=== PATIENT | female | born 1965 | race African-American/Black ===

== ENCOUNTER 2018-05-24 08:34 | Day surgery (SDC) | payer OTHER, SELFPAY ==
--- NOTE | 2018-05-24 | PATH_ITS ---
[facility] Accession Number: [id number] . 01 Material submitted: . RECTAL POLYP . 02 Diagnosis: Rectum, Polyp, Biopsy: Hyperplastic polyp. MRV/05/25/2018 . 02 Electronically signed: . Ruth Catalan MD, Pathologist NPI- [id number] . 01 Gross description: . RECTAL POLYP: Received in formalin is 1 fragment(s) of edmondson, soft tissue measuring 0.4 x 0.3 x 0.2 cm submitted entirely in 1 cassette(s) /CKI /CKI . 02 Pathologist provided ICD-10: K62.1 . 02 CPT . 898090 Performed at: 01 [facility] [address] [facility], [place], [place] [id number] MD Demond Fontaine MD Phone: [phone] Performed at: 02 [facility] [address] [place], [place] [id number] MD Ruth Catalan MD Phone: [phone]
[2018-05-24 08:50] VITALS: BP 129/82; PULSE 76; RESP 16; TEMP 36.6; O2SAT 100; BMI 44.2
[2018-05-24] MEDS: SODIUM CHLORIDE 0.9% 1,000 ML 70 ML IV (08:58)
--- NOTE | 2018-05-24 09:14 | PM.HP.1 ---
History of Present Illness Date Patient Seen: 05/24/18 Chief complaint: [id number] Narrative: The patient is a 52-year-old female who comes in for colon polyp surveillance. The patient was diagnosis multiple polyps at age 47 in [place] and had a surveillance colonoscopy 2 years later which revealed another polyp. She is back here for further surveillance. Prior colonoscopy reports are not available. Patient History Family & Social History Social History: household members spouse Meds Allergies Allergy/AdvReac Type Severity Reaction Status Date / Time No Known Drug Allergies Allergy Verified 05/24/18 08:55 Review of Systems Review of Systems All systems reviewed & are unremarkable except as noted in HPI and below Exam Vital Signs (past 8 hours): - 05/24/18 08:50 Temperature 97.8 F Pulse Rate 76 Respiratory Rate 16 Blood Pressure 129/82 Pulse Oximetry 100 Oxygen Delivery Method Room Air Narrative Exam Narrative: General: Patient is obese, not in apparent distress Cardiovascular: Regular rate and rhythm, no murmurs, rubs, or gallops; no evidence of edema; no palpable abdominal aortic aneurysm Gastrointestinal: Normoactive bowel sounds, soft, nontender, nondistended, no rebound tenderness, no hepatosplenomegaly, no evidence of hernia Assessment & Plan Plan: Assessment/Plan Narrative: 52-year-old female with history of colon polyps who is here for polyp surveillance. No active GI issues at present Regarding the procedure(s), the risks and potential complications, benefits, and alternatives (including not doing the procedure) were discussed with the patient. The risks include but are not limited to bleeding, splenic injury, infection, perforation which may require surgical intervention, missed lesions, and adverse reactions to sedative medicines. After a question and answer period, the patient agreed to proceed with the procedure(s) and gives informed consent.
--- NOTE | 2018-05-24 09:56 | P.OP.ENDO_ITS ---
Operative Date/Time/Diagnoses Date of procedure: 05/24/18 Procedure Notes Procedure in detail: Surgeon: Amaury Singh MD Procedure: Colonoscopy with polypectomy x1 Preoperative diagnosis: Colon polyp surveillance, last colonoscopy 2014 in [place] Postoperative diagnosis: Rectal polyp status post polypectomy, diverticulosis, grade 1 internal hemorrhoids Medications: Conscious sedation using 4 mg IV of Midazolam and 100 mcg IV of Fentanyl Preanesthesia Assessment An H and P was performed/updated and the Px?s ASA class is 2. The procedure was discussed in detail with the patient. The potential risks and complications including infection, bleeding, missed lesions, perforation, need for surgery in case of perforation, prolonged hospital stay, and were explained. A brief question and answer period was allotted and once all questions were answered, informed consent was obtained. The patient was brought back to the procedure room and placed on standard monitoring. The patient?s vital signs were monitored continuously throughout the entire procedure. Prior to starting, a timeout was performed to confirm the patient?s identity, allergies, medications, and procedure. Procedure in detail The patient was placed in left lateral decubitus position and once adequate sedation was obtained a ELENO was performed. The digital rectal examination did not reveal any palpable lesions. The tip of the colonoscope was placed in the anal canal and advanced without difficulty all the way to the cecum which was identified by the appendiceal orifice and the ileocecal valve. Careful examination of all zhang of the colon was performed with irrigation of any residual stool. There is note of scattered medium sized diverticula in the transverse colon, descending colon, sigmoid colon. A 2 mm polyp was visualized in the rectum and was removed by means of cold Jumbo forceps. Resection and retrieval were complete Retroflexion was performed in the rectum which revealed grade 1 internal hemorrhoids The patient tolerated the procedure well and will be brought back to the recovery area to be discharged once criteria are met. The prep was judged to be good/excellent and adequate to identify polyps less than 5 mm. The withdrawal time was 9 min. The total physician intraservice time was 21 min. Complications There were no complications and estimated blood loss was minimal. Recommendations: Resume previous diet Continue outPx medications Follow up pathology results Repeat colonoscopy in 5 years An emergency contact number was given to the patient for any complications related to the procedure
[2018-05-24] MEDS: MIDAZOLAM 5 MG/5 ML VIAL IV (10:00)
[2018-05-24] MEDS: fentaNYL 250 MCG/5 ML INJ IV (10:00)
--- NOTE | 2018-05-24 10:18 | PM.DS.1 ---
History of Present Illness Chief complaint: [id number] Narrative: The patient is a 52-year-old female who comes in for colon polyp surveillance. The patient was diagnosis multiple polyps at age 47 in [place] and had a surveillance colonoscopy 2 years later which revealed another polyp. She is back here for further surveillance. Prior colonoscopy reports are not available. Discharge Providers Discharge provider: Amaury Singh MD Discharge Date: 05/24/18 Exam Vital Signs (past 8 hours): - 05/24/18 08:50 Temperature 97.8 F Pulse Rate 76 Respiratory Rate 16 Blood Pressure 129/82 Pulse Oximetry 100 Oxygen Delivery Method Room Air Narrative Exam Narrative: General: Patient is obese, not in apparent distress Cardiovascular: Regular rate and rhythm, no murmurs, rubs, or gallops; no evidence of edema; no palpable abdominal aortic aneurysm Gastrointestinal: Normoactive bowel sounds, soft, nontender, nondistended, no rebound tenderness, no hepatosplenomegaly, no evidence of hernia Discharge Plan Discharge Plan Patient Disposition: Home Discharge comment: Discharge patient with a copy of procedure report Discharge Med Rec/Prescriptions Discharge Orders: Discharge (Order); Ordered 05/24/18 Ordered By: Amaury Singh Provider Discharge Instructions Diet: Diet as Tolerated Visit Report/Discharge Packet Stand Alone Forms: Surgery Discharge Discharge Data Attending Provider: Amaury Singh
[2018-05-24 10:20] VITALS: BP 118/65; PULSE 68; RESP 11; TEMP 36.8; O2SAT 97
[2018-05-24 10:25] VITALS: BP 116/60; PULSE 69; RESP 11; O2SAT 98
[2018-05-24 10:30] VITALS: BP 100/60; PULSE 72; RESP 14; TEMP 36.6; O2SAT 99
== END 2018-05-24 11:05 | disposition home or self-care (01) ==
PROVIDERS: Visit Provider Internal Medicine Gastroenterology
PROC: 0DJD8ZZ Inspection of Lower Intestinal Tract, Via Natural or Artificial Opening Endoscopic (ICD-10-PCS; CPT 45378; principal; 2018-05-24 10:00)
DX: Z86.010 Personal history of colon polyps (principal); K57.30 Diverticulosis of large intestine without perforation or abscess without bleeding; K64.0 First degree hemorrhoids; K62.1 Rectal polyp
CPT/HCPCS: 45380; J2250; J3010

== ENCOUNTER 2018-06-10 11:19 | Emergency (ER) | payer OTHER, SELFPAY ==
[2018-06-10 11:24] VITALS: BP 141/75; PULSE 79; RESP 16; TEMP 36.5; O2SAT 97
--- NOTE | 2018-06-10 12:39 | ED.EXTPRO ---
HPI - Extremity Problem <Nadia Greer PA-C - Last Filed: 06/10/18 21:04> General Chief complaint: Extremity Problem,Nontraumatic Stated complaint: left leg pain since 06/06 Time Seen by Provider: 06/10/18 12:39 Source: patient Mode of arrival: ambulatory Limitations: physical limitation History of Present Illness HPI Narrative: This 52-year-old female comes in due to pain in her left knee and thigh area. She denies any new trauma. She states that she has chronic pain in the knee related to old meniscal tears and arthritis and has had injections for this before, however this pain is not typical. She states that she awoke with pain and swelling on , felt like she had been kicked in the knee area. She states the pain radiates up her anterior thigh. She states that the swelling laxative and wanes but pain has stayed with her. She has tried Aleve and topical medicines as she usually does at home and not helpful. She states that she can bear some weight and pain is better if she turns her foot in. She denies any new activity leading up to symptoms. She denies any pain in her ankle or hip. She denies pain in the posterior leg. 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 She has a history of breast cancer. She has not noted any dyspnea, chest pain, or other new symptoms. Pain is not acutely worse today but not getting better and not able to see her PCP for weeks Related Data Previous Rx's Medication Instructions Recorded oxycodone-acetaminophen [Percocet] 1 tab PO Q4-6H PRN #12 tab 06/10/18 Allergies Allergy/AdvReac Type Severity Reaction Status Date / Time No Known Drug Allergies Allergy Verified 05/24/18 08:55 Review of Systems <Nadia Greer PA-C - Last Filed: 06/10/18 21:04> Review of Systems All systems reviewed & are unremarkable except as noted in HPI and below Exam <Nadia Greer PA-C - Last Filed: 06/10/18 21:04> Narrative Exam Narrative: GENERAL APPEARANCE: Patient sitting comfortably, in no distress. NECK/THYROID: Neck supple, no JVD. LUNGS: Clear to auscultation bilaterally. HEART: Regular rate and rhythm without murmur, normal S1, S2, no S3 or S4. EXTREMITIES: No cyanosis or pedal edema. No calf tenderness. Pedal pulses intact NEUROLOGIC: Alert and oriented, normal speech, and coordination. MS: L. knee there is mild effusion most visible over and superior to the patella. She is tender over the infrapatellar tissues, patella itself and central distal quads. No tenderness elsewhere over the left lower extremity including the ankle or hip. She is able to flex the knee to about 45? with tenderness. No tenderness with ankle range of motion, hip ROM Initial Vital Signs Initial Vital Signs: Vital Signs Temperature 97.7 F 06/10/18 11:24 Pulse Rate 79 06/10/18 11:24 Respiratory Rate 16 06/10/18 11:24 Blood Pressure 141/75 H 06/10/18 11:24 Pulse Oximetry 97 06/10/18 11:24 <Luiz Casillas DO - Last Filed: 06/11/18 07:07> Initial Vital Signs Initial Vital Signs: Vital Signs Temperature 97.7 F 06/10/18 11:24 Pulse Rate 79 06/10/18 11:24 Respiratory Rate 16 06/10/18 11:24 Blood Pressure 141/75 H 06/10/18 11:24 Pulse Oximetry 97 06/10/18 11:24 Course <Nadia Greer PA-C - Last Filed: 06/10/18 21:04> Orders Ordered: ED Orders 06/10/18 12:52 XR knee LT 3V Stat 06/10/18 12:54 US periph venous low extrem lt Stat Vital Signs - 8 hr 06/10/18 13:15 06/10/18 14:38 Temperature 98.9 F 98.7 F Pulse Rate 76 85 Respiratory Rate 16 16 Blood Pressure [Left Wrist] 126/76 137/71 Pulse Oximetry 97 97 <DO Cristina Martinez Last Filed: 06/11/18 07:07> Orders Ordered: ED Orders 06/10/18 12:52 XR knee LT 3V Stat 06/10/18 12:54 US periph venous low extrem lt Stat Vital Signs - 8 hr 06/10/18 13:15 06/10/18 14:38 Temperature 98.9 F 98.7 F Pulse Rate 76 85 Respiratory Rate 16 16 Blood Pressure [Left Wrist] 126/76 137/71 Pulse Oximetry 97 97 MDM - Extremity (Nontraumatic) <Nadia Greer PA-C - Last Filed: 06/10/18 21:04> Imaging Data knee: Radiologist's impression: BACK Knee X-Ray (Signed) Pato Ramos - 06/10/18 Launch Image View Report History [address] [address] XRay Report Signed Patient: Julissa Zelaya MR#: [id number] : 1965 Acct:[id number] Age/Sex: 52 / F Date of Service: 06/10/18 Loc: ED Accession Number: [id number] Procedure: XR knee LT 3V Ordering Provider: Nadia Greer P.A-C PROCEDURE: XR KNEE LT 3V INDICATIONS: pain, swelling TECHNIQUE: 3 views of the knee were acquired. COMPARISON: None. FINDINGS: Bones: No fractures or dislocations. No suspicious bony lesions. There is near [id number] articulation at the lateral facet of the left patellofemoral joint and slightly less degeneration at the medial compartment of the left knee. No acute trauma. Soft tissues: No joint effusion. No suspicious soft tissue calcifications. IMPRESSION: Moderately severe to severe medial compartment and patellofemoral joint osteoarthritis at the left knee, without trauma. Dictated by: Pato Ramos M.D. on 06/10/2018 at 13:52 Approved by: Pato Ramos M.D. on 06/10/2018 at 13:53 Venous US: Radiologist's impression: View Report History [address] [address] Ultrasound Report Signed Patient: Julissa Zelaya MR#: [id number] : 1965 Acct:[id number] Age/Sex: 52 / F Date of Service: 06/10/18 Loc: ED Accession Number: [id number] Procedure: US periph venous low extrem lt Ordering Provider: Nadia Greer P.A-C PROCEDURE: US PERIPH VENOUS LOW EXTREM LT INDICATIONS: LE pain, swelling, h/o clot TECHNIQUE: Real-time imaging, as well as color and pulse Doppler interrogation, were performed of the lower extremity deep veins from the inguinal ligament to the popliteal fossa. COMPARISON: None. FINDINGS: The deep veins are normally compressible, and free of intraluminal thrombus. Color and pulse Doppler demonstrate normal phasic intraluminal flow. There is normal augmentation response to distal compression maneuver. IMPRESSION: Normal for age. No DVT found. Dictated by: Pato Ramos M.D. on 06/10/2018 at 14:57 Approved by: Pato Ramos M.D. on 06/10/2018 at 14:58 Discharge Plan Departure Patient Disposition: Home Clinical Impression: Knee osteoarthritis, Patellofemoral pain syndrome of left knee Discharge Date/Time: 06/10/18 14:44 Interventions: ED Discharge Assessment Last Done: 06/10/18 14:43 Instructions: DI for Patellofemoral Pain Syndrome-Adult Activity Restrictions/Additional Instructions: Your arthritis in her knee is severe, and some of this pain could be due to an exacerbation of that. This can lead to swelling as well. You also have localized pain over your knee cap and the tendon above and below it. This could be related to strain from your arthritis. Please continue your Aleve, 1-2 tablets twice daily (maximum), and you can add the Percocet as needed since you have done well with that in the past (do not drive). Try the knee brace or Tawanda wrap when you are walking (whatever is most helpful). You can also try heat and ice, as well as topical medicine such as lidocaine patch or Ganesh-Dobbins. Please follow-up with your PCP next week as you may need a refill on pain medication and they may want to refer you to Orthopedics. If you want to be seen locally, [facility] sees patients both in [facility] and [facility] (they can refer you there). Please return if you have new or acutely worsening symptoms. Our pharmacy technician per diem did not see any sign of blood clot in your leg today, however I will call you if the radiologist reports any different findings. Prescriptions: New oxycodone-acetaminophen [Percocet] 5-325 mg tablet 1 tab PO Q4-6H PRN (Reason: acute knee pain) Qty: 12 RF: 0 Referrals: Martha Marsh [Other] ([place]) <Luiz Casillas DO - Last Filed: 06/11/18 07:07> Cosign ED Attending Cosgarryature Attestation: I was available for consultation during this patient's emergency department encounter
--- NOTE | 2018-06-10 12:52 | DI.RAD.S_ITS ---
PROCEDURE: XR KNEE LT 3V INDICATIONS: pain, swelling TECHNIQUE: 3 views of the knee were acquired. COMPARISON: None. FINDINGS: Bones: No fractures or dislocations. No suspicious bony lesions. There is near jwlx-vp-pfzq articulation at the lateral facet of the left patellofemoral joint and slightly less degeneration at the medial compartment of the left knee. No acute trauma. Soft tissues: No joint effusion. No suspicious soft tissue calcifications. IMPRESSION: Moderately severe to severe medial compartment and patellofemoral joint osteoarthritis at the left knee, without trauma. Dictated by: Pato Ramos M.D. on 06/10/2018 at 13:52 Approved by: Pato Ramos M.D. on 06/10/2018 at 13:53
--- NOTE | 2018-06-10 12:54 | DI.US.S_ITS ---
PROCEDURE: US PERIPH VENOUS LOW EXTREM LT INDICATIONS: LE pain, swelling, h/o clot TECHNIQUE: Real-time imaging, as well as color and pulse Doppler interrogation, were performed of the lower extremity deep veins from the inguinal ligament to the popliteal fossa. COMPARISON: None. FINDINGS: The deep veins are normally compressible, and free of intraluminal thrombus. Color and pulse Doppler demonstrate normal phasic intraluminal flow. There is normal augmentation response to distal compression maneuver. IMPRESSION: Normal for age. No DVT found. Dictated by: Pato Ramos M.D. on 06/10/2018 at 14:57 Approved by: Pato Ramos M.D. on 06/10/2018 at 14:58
--- NOTE | 2018-06-10 13:05 | ED_ITS ---
HPI - Extremity Problem <Nadia Greer PA-C - Last Filed: 06/10/18 21:04> General Chief complaint: Extremity Problem,Nontraumatic Stated complaint: left leg pain since 06/06 Time Seen by Provider: 06/10/18 12:39 Source: patient Mode of arrival: ambulatory Limitations: physical limitation History of Present Illness HPI Narrative: This 52-year-old female comes in due to pain in her left knee and thigh area. She denies any new trauma. She states that she has chronic pain in the knee related to old meniscal tears and arthritis and has had injections for this before, however this pain is not typical. She states that she awoke with pain and swelling on , felt like she had been kicked in the knee area. She states the pain radiates up her anterior thigh. She states that the swelling laxative and wanes but pain has stayed with her. She has tried Aleve and topical medicines as she usually does at home and not helpful. She states that she can bear some weight and pain is better if she turns her foot in. She denies any new activity leading up to symptoms. She denies any pain in her ankle or hip. She denies pain in the posterior leg. 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 She has a history of breast cancer. She has not noted any dyspnea, chest pain, or other new symptoms. Pain is not acutely worse today but not getting better and not able to see her PCP for weeks Related Data Previous Rx's Medication Instructions Recorded oxycodone-acetaminophen [Percocet] 1 tab PO Q4-6H PRN #12 tab 06/10/18 Allergies Allergy/AdvReac Type Severity Reaction Status Date / Time No Known Drug Allergies Allergy Verified 05/24/18 08:55 Review of Systems <Nadia Greer PA-C - Last Filed: 06/10/18 21:04> Review of Systems All systems reviewed & are unremarkable except as noted in HPI and below Exam <Nadia Greer PA-C - Last Filed: 06/10/18 21:04> Narrative Exam Narrative: GENERAL APPEARANCE: Patient sitting comfortably, in no distress. NECK/THYROID: Neck supple, no JVD. LUNGS: Clear to auscultation bilaterally. HEART: Regular rate and rhythm without murmur, normal S1, S2, no S3 or S4. EXTREMITIES: No cyanosis or pedal edema. No calf tenderness. Pedal pulses intact NEUROLOGIC: Alert and oriented, normal speech, and coordination. MS: L. knee there is mild effusion most visible over and superior to the patella. She is tender over the infrapatellar tissues, patella itself and central distal quads. No tenderness elsewhere over the left lower extremity including the ankle or hip. She is able to flex the knee to about 45? with tenderness. No tenderness with ankle range of motion, hip ROM Initial Vital Signs Initial Vital Signs: Vital Signs Temperature 97.7 F 06/10/18 11:24 Pulse Rate 79 06/10/18 11:24 Respiratory Rate 16 06/10/18 11:24 Blood Pressure 141/75 H 06/10/18 11:24 Pulse Oximetry 97 06/10/18 11:24 <Luiz Casillas DO - Last Filed: 06/11/18 07:07> Initial Vital Signs Initial Vital Signs: Vital Signs Temperature 97.7 F 06/10/18 11:24 Pulse Rate 79 06/10/18 11:24 Respiratory Rate 16 06/10/18 11:24 Blood Pressure 141/75 H 06/10/18 11:24 Pulse Oximetry 97 06/10/18 11:24 Course <Nadia Greer PA-C - Last Filed: 06/10/18 21:04> Orders Ordered: ED Orders 06/10/18 12:52 XR knee LT 3V Stat 06/10/18 12:54 US periph venous low extrem lt Stat Vital Signs - 8 hr 06/10/18 13:15 06/10/18 14:38 Temperature 98.9 F 98.7 F Pulse Rate 76 85 Respiratory Rate 16 16 Blood Pressure [Left Wrist] 126/76 137/71 Pulse Oximetry 97 97 <DO Cristian Martinez Last Filed: 06/11/18 07:07> Orders Ordered: ED Orders 06/10/18 12:52 XR knee LT 3V Stat 06/10/18 12:54 US periph venous low extrem lt Stat Vital Signs - 8 hr 06/10/18 13:15 06/10/18 14:38 Temperature 98.9 F 98.7 F Pulse Rate 76 85 Respiratory Rate 16 16 Blood Pressure [Left Wrist] 126/76 137/71 Pulse Oximetry 97 97 MDM - Extremity (Nontraumatic) <Nadia Greer PA-C - Last Filed: 06/10/18 21:04> Imaging Data knee: Radiologist's impression: BACK Knee X-Ray (Signed) Pato Ramos - 06/10/18 Launch Image View Report History [address] [address] XRay Report Signed Patient: Julissa Zelaya MR#: [id number] : 1965 Acct:[id number] Age/Sex: 52 / F Date of Service: 06/10/18 Loc: ED Accession Number: [id number] Procedure: XR knee LT 3V Ordering Provider: Nadia Greer P.A-C PROCEDURE: XR KNEE LT 3V INDICATIONS: pain, swelling TECHNIQUE: 3 views of the knee were acquired. COMPARISON: None. FINDINGS: Bones: No fractures or dislocations. No suspicious bony lesions. There is near [id number] articulation at the lateral facet of the left patellofemoral joint and slightly less degeneration at the medial compartment of the left knee. No acute trauma. Soft tissues: No joint effusion. No suspicious soft tissue calcifications. IMPRESSION: Moderately severe to severe medial compartment and patellofemoral joint osteoarthritis at the left knee, without trauma. Dictated by: Pato Ramos M.D. on 06/10/2018 at 13:52 Approved by: Pato Ramos M.D. on 06/10/2018 at 13:53 Venous US: Radiologist's impression: View Report History [address] [address] Ultrasound Report Signed Patient: Julissa Zelaya MR#: [id number] : 1965 Acct:[id number] Age/Sex: 52 / F Date of Service: 06/10/18 Loc: ED Accession Number: [id number] Procedure: US periph venous low extrem lt Ordering Provider: Nadia Greer P.A-C PROCEDURE: US PERIPH VENOUS LOW EXTREM LT INDICATIONS: LE pain, swelling, h/o clot TECHNIQUE: Real-time imaging, as well as color and pulse Doppler interrogation, were performed of the lower extremity deep veins from the inguinal ligament to the popliteal fossa. COMPARISON: None. FINDINGS: The deep veins are normally compressible, and free of intraluminal thrombus. Color and pulse Doppler demonstrate normal phasic intraluminal flow. There is normal augmentation response to distal compression maneuver. IMPRESSION: Normal for age. No DVT found. Dictated by: Pato Ramos M.D. on 06/10/2018 at 14:57 Approved by: Pato Ramos M.D. on 06/10/2018 at 14:58 Discharge Plan Departure Patient Disposition: Home Clinical Impression: Knee osteoarthritis, Patellofemoral pain syndrome of left knee Discharge Date/Time: 06/10/18 14:44 Interventions: ED Discharge Assessment Last Done: 06/10/18 14:43 Instructions: DI for Patellofemoral Pain Syndrome-Adult Activity Restrictions/Additional Instructions: Your arthritis in her knee is severe, and some of this pain could be due to an exacerbation of that. This can lead to swelling as well. You also have localized pain over your knee cap and the tendon above and below it. This could be related to strain from your arthritis. Please continue your Aleve, 1- 2 tablets twice daily (maximum), and you can add the Percocet as needed since you have done well with that in the past (do not drive). Try the knee brace or Tawanda wrap when you are walking (whatever is most helpful). You can also try heat and ice, as well as topical medicine such as lidocaine patch or Ganesh-Dobbins. Please follow-up with your PCP next week as you may need a refill on pain medication and they may want to refer you to Orthopedics. If you want to be seen locally, [facility] sees patients both in [facility] and [facility] (they can refer you there). Please return if you have new or acutely worsening symptoms. Our help desk technician did not see any sign of blood clot in your leg today, however I will call you if the radiologist reports any different findings. Prescriptions: New oxycodone-acetaminophen [Percocet] 5-325 mg tablet 1 tab PO Q4-6H PRN (Reason: acute knee pain) Qty: 12 RF: 0 Referrals: Martha Marsh [Other] ([place]) <Luiz Casillas DO - Last Filed: 06/11/18 07:07> Cosign ED Attending Cosgarryature Attestation: I was available for consultation during this patient's emergency department encounter
[2018-06-10 13:15] VITALS: BP 126/76; PULSE 76; RESP 16; TEMP 37.2; O2SAT 97
[2018-06-10 14:38] VITALS: BP 137/71; PULSE 85; RESP 16; TEMP 37.1; O2SAT 97
== END 2018-06-10 14:44 | disposition home or self-care (01) ==
PROVIDERS: Emergency Provider Internal Medicine
DX: M17.10 Unilateral primary osteoarthritis, unspecified knee (principal); M22.2X2 Patellofemoral disorders, left knee
CPT/HCPCS: 73562; 93971; 99283; 99284

== ENCOUNTER 2019-10-22 07:47 | Emergency (ER) | payer OTHER, SELFPAY ==
[2019-10-22 07:56] VITALS: BP 131/61; PULSE 61; RESP 16; TEMP 36.4; O2SAT 100; BMI 26.5
--- NOTE | 2019-10-22 08:27 | ED.BACK ---
HPI - Back Pain/Injury General Chief Complaint: Back Pain/Injury Stated Complaint: Lower left back pain Time Seen by Provider: 10/22/19 08:12 Source: patient Limitations: no limitations History of Present Illness HPI Narrative: CC: Left Flank Pain HPI: The patient is a 54-year-old female who presents to the emergency department with left lower back pain. The patient states that she retired went to bed without any problems. She developed the pain at approximately 5:30 a.m. this morning. She stated that she has nocturia usually x2 woke up in the middle of the night to go to the bathroom in as she did she developed some pain and discomfort that she thought was a gas cramp in her left lower back. The discomfort seemed to get worse and radiate and wrap down around her flank towards her pelvis. As the morning progressed the discomfort became more and more intense. At 1 point the pain was 10/10 in intensity at which time she developed nausea vomiting and retching. That is when she decided to come into the emergency department. In the emergency department her pain was described to be approximately 7/10 intensity. She describes the pain is a dull achy discomfort that is not sharp. She has had some minimal burning dysuria and urgency without increased frequency. She states that she has not had a recent urinary tract infection has never had kidney stones or kidney failure. The patient states that in 2006 she broke her right leg and had a blood clot with pulmonary embolism. At that point she was placed on an anticoagulant which she no longer is on. She also states that she has had gastric bypass surgery. She states that her pain is tolerable but not tolerable. It is very uncomfortable. Related Data Previous Rx's Medication Instructions Recorded oxycodone-acetaminophen [Percocet] 1 tab PO Q4-6H PRN #12 tab 06/10/18 ciprofloxacin HCl [Cipro] 500 mg PO BID #14 tab 10/22/19 metronidazole [Flagyl] 500 mg PO BID #14 tab 10/22/19 ondansetron HCl [Zofran] 4 mg PO Q6H PRN #15 tab 10/22/19 oxycodone-acetaminophen [Percocet] 1 tab PO Q6H PRN #12 tab 10/22/19 tamsulosin [Flomax] 0.4 mg PO DAILY #5 cap 10/22/19 Allergies Allergy/AdvReac Type Severity Reaction Status Date / Time No Known Drug Allergies Allergy Verified 05/24/18 08:55 Review of Systems Review of Systems Narrative: REVIEW OF SYSTEMS: CONSTITUTIONAL: No fever chills or sweats NEUROLOGICAL: No headache numbness tingling paresthesias anesthesia is or paresis EENT: No sore throat nasal congestion change in vision CARDIO-PULMONARY: No chest pain cough shortness of breath GASTROINTESTINAL: Left flank pain with nausea and vomiting no diarrhea GENITAL URINARY: Left flank pain with mild burning dysuria increased urgency but no frequency MUSCULOSKELETAL/ RHEUMATOLOGICAL: Left lower back and flank pain Patient History Medical History Chronic pain of both knees (Chronic) History of breast cancer (Resolved) Surgical History History of mastectomy (Chronic) Social History household members: spouse Smoking Status: Never smoker Smoking Status: Never smoker alcohol intake frequency: a few times a week Substance Use Type: does not use Exam Narrative Exam Narrative: PHYSICAL EXAM: CONSTITUTIONAL: Awake, Alert, Oriented, Coherent, Cooperative in NAD. Appears very stoic HEAD: AT/NC EENT: PERRL, FROM of eyes, no discharge, no nystagmus MOUTH: Wearing a mask NECK: Supple, no obvious JVD, Trachea is midline without stridor, . SPINE: Palpationof the cervical, Thoracic, Lumbar or Sacral spine reveals no gross deformity or tenderness. No CVA tenderness. THORAX: No deformity, retractions, chest wall tenderness. LUNGS: Clear, symmetrical breath sounds without respiratory distress. HEART: Normal heart tones, regular rhythm and rate without murmur. ABDOMEN: Soft, non-tender, normal bowel sounds without guarding, rebound, rigidity or palpable mass. EXTREMITIES: No edema, deformity, tenderness or cyanosis. NEURO: Awake, alert, oriented, conversive, cranial nerves II-XII are symmetrical , moves all 4 extremities and is ambulatory. Initial Vital Signs Initial Vital Signs: Vital Signs Temperature 97.6 F 10/22/19 07:56 Pulse Rate 61 10/22/19 07:56 Respiratory Rate 16 10/22/19 07:56 Blood Pressure 131/61 10/22/19 07:56 Pulse Oximetry 100 10/22/19 07:56 Course Course Course Narrative: 0827: per nursing urine dipstick positive hematuria 0923: The patient's CT scan has been completed. The patient's urinalysis reveals that she has a few bacteria and is positive for red blood cells. Her urine is being cultured. 0947: The patient's CT scan of her abdomen reveals 1. Distal left ureter obstructing calculus measuring 8 x 5 mm with associated moderate hydroureteronephrosis. 2. Additional nonobstructing punctate kidney stones 3. Minimal stranding around the sigmoid colon and in the right adnexa there is mild sigmoid colon diverticulosis. Findings are suspicious for mild diverticulitis follow-up colonoscopy should be considered if not recently performed. 4. Gallbladder sludge Bulbous appearing uterus suggesting uterine fibroids. 1007: The patient feels much better and able to go home on her own. She was informed of the CT findings. Orders Ordered: Discontinued Medications Ciprofloxacin (Cipro) 500 mg PO NOW ONE Stop: 10/22/19 10:09 Last Admin: 10/22/19 11:51 Dose: 500 mg Documented by: ROSALIO Metronidazole (Metronidazole) 500 mg PO NOW ONE Stop: 10/22/19 10:09 Last Admin: 10/22/19 11:51 Dose: 500 mg Documented by: ROSALIO Morphine Sulfate (Morphine) 4 mg IV NOW ONE Stop: 10/22/19 08:27 Last Admin: 10/22/19 08:43 Dose: 4 mg Documented by: ROSALIO Ondansetron HCl (Zofran) 4 mg IV NOW ONE Stop: 10/22/19 08:27 Last Admin: 10/22/19 08:44 Dose: 4 mg Documented by: ROSALIO Tamsulosin HCl (Flomax) 0.4 mg PO NOW ONE Stop: 10/22/19 10:20 Last Admin: 10/22/19 11:51 Dose: 0.4 mg Documented by: ROSALIO Vital Signs Vital signs: Vital Signs - 8 hr 10/22/19 12:01 Pulse Rate 58 L Respiratory Rate 19 Blood Pressure [Left Arm] 131/68 Pulse Oximetry 98 MDM - Back Pain/Injury Medical Records Attestation: I reviewed the patient's medical records. Lab Data Attestation: I reviewed the patient's lab results. Result diagrams: 10/22/19 08:41 10/22/19 08:41 Labs: Lab Results 10/22/19 10/22/19 10/22/19 Range/Units 08:00 08:41 08:41 WBC 4.2 L (4.5-11.0) X10^3/uL RBC 3.83 L (4.0-5.2) X10^6/uL Hgb 12.0 (12.0-16.0) g/dL Hct 36.0 (36-46) % MCV 94.1 (80-100) fL MCH 31.3 (26-34) PG MCHC 33.3 (30-36) % RDW 14.7 (11.6-14.8) % Plt Count 208 (150-400) X10^3/uL Neut % (Auto) 66.2 (50-75) % Lymph % (Auto) 22.5 L (25-40) % [place] % (Auto) 8.3 (3-14) % Eos % (Auto) 1.6 L (2-4) % Baso % (Auto) 1.4 (0-2) % Neut # (Auto) 2800 (0472-9183) /uL Lymph # (Auto) 900 L (7399-1586) /uL [place] # (Auto) 400 (0-900) /uL Eos # (Auto) 100 (0-450) /uL Baso # (Auto) 100 (0-100) /uL Sodium 139 (137-145) mmol/L Potassium 3.7 (3.4-5.1) mmol/L Chloride 108 H (98-107) mmol/L Carbon Dioxide 28 (22-32) mmol/L BUN 13 (7-17) mg/dL Creatinine 0.79 (0.52-1.04) mg/dL Estimated GFR > 60.0 (>60) mL/min BUN/Creatinine Ratio 16.5 (6-22) Glucose 93 (70-100) mg/dL Calcium 9.8 (8.4-10.2) mg/dL Total Bilirubin 1.0 (0.2-1.3) mg/dL AST 31 (14-36) IU/L ALT 21 (<35) IU/L Alkaline Phosphatase 85 (38-126) U/L Total Protein 6.5 (6.3-8.2) g/dL Albumin 3.3 L (3.5-5.0) g/dL Globulin 3.2 (1.7-4.1) g/dL Albumin/Globulin Ratio 1.0 (1.0-2.8) Urine RBC 1-5/hpf (0-5/HPF) Urine WBC 1-5/hpf (0-5/HPF) Ur Squamous Epith Cells 1-5 /hpf (0-5/HPF) Amorphous Sediment 3+ Urine Bacteria Few (2-10) H (None) Hyaline Casts 0-1/lpf (None) Urine Mucus 1+ H (Negative) Ur Culture Indicated? Specimen cultured Point of Care Testing Test Results Negative Urine Dip Bedside Urine Glucose Negative Bedside Urine Bilirubin - Negative Bedside Urine Ketone - Negative Urine Specific Ch[place] 1.025 Bedside Urine Occult Blood + Bedside Urine pH 6.0 Bedside Urine Protein - Negative Bedside Urine Urobilinogen +/- 1mg Bedside Urine Nitrite - Negative Bedside Urine Leukocytes +/- 15 Esterase Discharge Plan Departure Patient Disposition: Home Clinical Impression: Acute left flank pain, Retching, Calculus of left ureter, Hydroureteronephrosis, Sigmoid diverticulitis Hematuria Qualifiers: Hematuria type: unspecified type Qualified Code(s): R31.9 - Hematuria, unspecified Fibroid, uterine Qualifiers: Uterine leiomyoma location: unspecified location Qualified Code(s): D25.9 - Leiomyoma of uterus, unspecified Diarrhea Qualifiers: Diarrhea type: unspecified type Qualified Code(s): R19.7 - Diarrhea, unspecified Discharge Date/Time: 10/22/19 12:02 Instructions: DI for Kidney Stones, DI for Diverticulitis, DI for Gallstones, DI for Vomiting -- Adult Activity Restrictions/Additional Instructions: 1. Follow-up with your primary care physician and Dr. Summers the urologist on-call for your kidney stone. 2. Take the Zofran for your nausea and vomiting. Take the Percocet for your pain and discomfort. Take the Cipro and Flagyl for your diverticulitis and diarrhea. 3. Drink 2-3 L of fluid per day. Advance her diet as tolerated 4. If you developed severe pain on relieved by the pain medications provided you need to return to the emergency department . 5. Return to the emergency department if you develop fever uncontrolled nausea and vomiting, fainting or passing out. Prescriptions: New oxycodone-acetaminophen [Percocet] 7.5-325 mg tablet 1 tab PO Q6H PRN (Reason: pain) Qty: 12 RF: 0 ondansetron HCl [Zofran] 4 mg tablet 4 mg PO Q6H PRN (Reason: nausea and vomiting) Qty: 15 RF: 0 metronidazole [Flagyl] 500 mg tablet 500 mg PO BID Qty: 14 RF: 0 ciprofloxacin HCl [Cipro] 500 mg tablet 500 mg PO BID Qty: 14 RF: 0 tamsulosin [Flomax] 0.4 mg capsule 0.4 mg PO DAILY Qty: 5 RF: 0 No Action oxycodone-acetaminophen [Percocet] 5-325 mg tablet 1 tab PO Q4-6H PRN (Reason: acute knee pain) Qty: 12 RF: 0 Referrals: Kristine Summers MD [Physician] -
[2019-10-22] MEDS: MORPHINE 4 MG/ML INJ IV (08:43)
[2019-10-22] MEDS: ONDANSETRON 4 MG/2 ML INJ IV (08:44)
[2019-10-22 08:46] VITALS: BP 130/62; PULSE 60; RESP 17; O2SAT 100
[2019-10-22 08:54] LABS: Add Manual Diff / Slide Review NO; Basophils Absolute Auto 100 /uL (0-100); Basophils Percent Auto 1.4 % (0-2); Eosinophils Absolute Auto 100 /uL (0-450); Eosinophils Percent Auto 1.6 % (2-4); Lymphocytes Absolute Auto 900 /uL (1100-4500); Lymphocytes Percent Auto 22.5 % (25-40); Mean Corpuscular HGB Conc 33.3 % (30-36); Mean Corpuscular Hemoglobin 31.3 PG (26-34); Mean Corpuscular Volume 94.1 fL (80-100); Monocytes Absolute Auto 400 /uL (0-900); Monocytes Percent Auto 8.3 % (3-14); Neutrophils Absolute Auto 2800 /uL (1500-7000); Neutrophils Percent Auto 66.2 % (50-75); Platelet Count 208 X10^3/uL (150-400); Red Blood Cell Count 3.83 X10^6/uL (4.0-5.2); Red Cell Distribution Width 14.7 % (11.6-14.8); White Blood Cell Count 4.2 X10^3/uL (4.5-11.0)
[2019-10-22 08:55] LABS: Amorphous Sediment Urine 3+; RBC Urine 1-5/HPF (0-5/HPF); Squamous Epithelial Cell Urine 1-5 /HPF (0-5/HPF); WBC Urine 1-5/HPF (0-5/HPF)
[2019-10-22 08:56] LABS: Bacteria Urine Few (2-10); Culture Indicated Urine Specimen Cultured; Hyaline Casts Urine 0-1/LPF; Mucus Urine 1+ (Negative)
[2019-10-22 09:06] LABS: Blood Urea Nitrogen 13 mg/dL (7-17); Carbon Dioxide 28 mmol/L (22-32); Chloride 108 mmol/L (98-107); Potassium 3.7 mmol/L (3.4-5.1); Sodium 139 mmol/L (137-145)
[2019-10-22 09:07] LABS: Alanine Aminotransferase 21 IU/L (<35); Albumin 3.3 g/dL (3.5-5.0); Alkaline Phosphatase 85 U/L (38-126); Aspartate Aminotransferase 31 IU/L (14-36); BUN Creatinine Ratio 16.5 (6-22); Calcium 9.8 mg/dL (8.4-10.2); Estimated Glomerular Filt Rate > 60.0 mL/min (>60); Globulin 3.2 g/dL (1.7-4.1); Glucose 93 mg/dL (70-100); HEMOLYSIS 23 (0-50); Total Protein 6.5 g/dL (6.3-8.2)
--- NOTE | 2019-10-22 09:10 | DI.CT.S_ITS ---
PROCEDURE:. ABDOMEN PELVIS WO CON INDICATIONS: left flank and back pain with hematuria TECHNIQUE: Noncontrast 5 mm thick sections acquired from the diaphragms to the symphysis. 5 mm coronal and sagittal reformats were then performed. For radiation dose reduction, the following was used: automated exposure control, adjustment of mA and/or kV according to patient size. COMPARISON: None. FINDINGS: Image quality: Excellent. ABDOMEN: Lung bases: Lung bases are clear. Heart size is normal. Solid organs: Liver is normal in size. Several small well-circumscribed hypodense hepatic cysts. Gallbladder is not significantly distended. There is layering sludge. Question of punctate calcified gallstone. Pancreas is normal in contours. Spleen is normal in size. No adrenal nodules. Moderate left kidney hydroureteronephrosis. Distal left ureter calculus or 2 adjacent calculi measuring 0.8 x 0.5 cm (2/63). Additional punctate nonobstructing calculi bilaterally. Simple appearing right renal cyst. Peritoneum and bowel: Post Nahomi-en-Y gastric bypass. No small bowel obstruction. The appendix is normal. A few sigmoid colon diverticula. There is minimal stranding surrounding the sigmoid colon and in the region of the right adnexa. No free fluid or air. Nodes and vessels: No retroperitoneal or mesenteric adenopathy by size criteria. Aorta and inferior vena cava are normal in caliber. Left gonadal vein phleboliths. Miscellaneous: No ventral hernias. Mild anasarca. PELVIS: Genitourinary: Bladder is decompressed limiting evaluation. No bladder calculi identified. Uterus is mildly bulbous in appearance. Miscellaneous: No inguinal hernias or adenopathy. Bones: No suspicious bony lesions. No vertebral body compression fractures. IMPRESSION: 1. Distal left ureter obstructing calculus measuring 8 x 5 mm in with associated moderate hydroureteronephrosis. 2. Additional nonobstructing punctate kidney stones. 3. Minimal stranding surrounding the sigmoid colon and in the right adnexa. There is mild sigmoid colon diverticulosis. Findings are suspicious for mild diverticulitis. -Followup colonoscopy should be considered if not recently performed. 4. Gallbladder sludge. 5. Bulbous appearing uterus could be due to uterine fibroids. Dictated by: Dc Dougherty M.D. on 10/22/2019 at 9:16 Approved by: Dc Dougherty M.D. on 10/22/2019 at 9:33
[2019-10-22 09:30] VITALS: BP 121/64; PULSE 51; RESP 16; O2SAT 98
[2019-10-22 10:30] VITALS: BP 125/93; PULSE 56; RESP 17; O2SAT 97
[2019-10-22] MEDS: TAMSULOSIN 0.4 MG CAPSULE PO (11:51)
[2019-10-22] MEDS: metroNIDAZOLE 250 MG TABLET 500 MG PO (11:51)
[2019-10-22] MEDS: CIPROFLOXACIN 500 MG TABLET PO (11:51)
[2019-10-22 12:01] VITALS: BP 131/68; PULSE 58; RESP 19; O2SAT 98
== END 2019-10-22 12:02 | disposition home or self-care (01) ==
PROVIDERS: Emergency Provider Emergency Medicine
DX: N13.2 Hydronephrosis with renal and ureteral calculous obstruction (principal); R31.9 Hematuria, unspecified; D25.9 Leiomyoma of uterus, unspecified; R19.7 Diarrhea, unspecified; K57.32 Diverticulitis of large intestine without perforation or abscess without bleeding; R11.10 Vomiting, unspecified
CPT/HCPCS: 36415; 74176; 80053; 81003; 81015; 81025; 85025; 87086; 96374; 96375; 99284; J2270; J2405

== ENCOUNTER → 2022-11-22 14:52 | Outpatient (CLI) | payer OTHER, SELFPAY | PROVIDERS: Visit Provider Student in an Organized Health Care Education/Training Program | DX: R31.9 Hematuria, unspecified (principal) | CPT/HCPCS: 87086 ==

== ENCOUNTER 2022-11-24 22:21 | Emergency (ER) | payer OTHER, SELFPAY ==
[2022-11-24 22:24] VITALS: BP 144/78; PULSE 67; RESP 14; TEMP 36.8; O2SAT 100; BMI 23.9
[2022-11-24 22:52] LABS: Appearance Urine UA CLEAR; Bilirubin Urine UA NEGATIVE (NEGATIVE); Color Urine UA YELLOW; Glucose Urine UA NEGATIVE (Negative); Ketones Urine UA NEGATIVE (NEGATIVE); Leukocyte Esterase Urine UA NEGATIVE (NEGATIVE); Nitrite Urine UA NEGATIVE (Negative); Occult Blood Urine UA 3+ (Negative); Protein Urine UA 1+ (Negative); Specific Gravity Urine UA >=1.030 (1.000-1.035); Urobilinogen Urine UA 0.2 E.U./dL (0.2)
[2022-11-24 23:05] LABS: Bacteria Urine Few (2-10); RBC Urine 30-100/HPF (0-5/HPF); Squamous Epithelial Cell Urine 1-5 /HPF (0-5/HPF); WBC Urine 1-5/HPF (0-5/HPF)
--- NOTE | 2022-11-24 23:05 | ED_ITS ---
HPI - General Adult General Chief complaint: Urogenital-Female Stated complaint: Blood in Urine Time Seen by Provider: 11/24/22 22:34 Source: patient Mode of arrival: Ambulatory Limitations: no limitations History of Present Illness HPI narrative: Patient is a 57-year-old female who does have a history of kidney stones. She has required surgical removal in the past. Is here for evaluation of several days of blood in her urine and bilateral flank discomfort. She is not having any fevers. No sharp pain for which she is had in the past for kidney stones. She was seen in the walk-in clinic several days ago. Was started on antibiotics for presumed urinary tract infection. She is subsequently been told that she did not have an infection but she is continuing to take the antibiotics because she is already started the course of it. She is here because she wanted to make sure that her kidney function is okay. She is not on blood thinners. No abdominal pain. Related Data Home Medications Medication Instructions Recorded Confirmed omeprazole 40 mg capsule,delayed 40 mg PO DAILY 11/22/22 11/22/22 release Previous Rx's Medication Instructions Recorded cefdinir 300 mg capsule 300 mg PO Q12H UTI 5 days #10 caps 11/22/22 Allergies Allergy/AdvReac Type Severity Reaction Status Date / Time No Known Drug Allergies Allergy Verified 11/22/22 14:59 Review of Systems Constitutional Constitutional: Reports system reviewed and no additional complaints, except as documented Respiratory Respiratory: Reports system reviewed and no additional complaints, except as documented Gastrointestinal Gastrointestinal: Reports system reviewed and no additional complaints, except as documented Genitourinary Genitourinary: Reports system reviewed and no additional complaints, except as documented Musculoskeletal Musculoskeletal: Reports system reviewed and no additional complaints, except as documented Hematologic/Lymphatic On Anticoagulants: No Patient History Medical History Chronic pain of both knees History of breast cancer Surgical History History of mastectomy Social History household members: spouse Smoking Status: Never smoker Smoking Status: Never smoker alcohol intake frequency: a few times a week Substance Use Type: marijuana Exam Initial Vital Signs Initial Vital Signs: Vital Signs Temperature 98.3 F 06/14/23 22:24 Pulse Rate 67 11/24/22 22:24 Respiratory Rate 14 11/24/22 22:24 Blood Pressure 144/78 H 11/24/22 22:24 Pulse Oximetry 100 11/24/22 22:24 Oxygen Delivery Method Room Air 11/24/22 22:24 Const General: cooperative, comfortable and No ill appearing [facility] Head: normal to inspection and normocephalic Resp Effort & Inspection: normal respiratory effort Cardio Rate: regular rate GI Inspection: normal to inspection and non-distended Palpation: soft and No tender Back/Spine/Pelvis Back: No CVA tenderness Skin General: no rashes or lesions noted Neuro General: patient alert, patient awake and moves all extremities Extrem General: capillary refill normal Course Orders Ordered: ED Orders 11/24/22 22:35 Urinalysis and Microscopic Stat 11/24/22 23:10 Basic Metabolic Panel Stat Complete Blood Count AUTO DIFF Stat Vital Signs Vital signs: Vital Signs - 8 hr 11/24/22 22:24 Temperature 98.3 F Pulse Rate 67 Respiratory Rate 14 Blood Pressure 144/78 H Pulse Oximetry 100 Oxygen Delivery Method Room Air Medical Decision Making Medical Records Medical records reviewed: Yes I reviewed the patient's medical records. Lab Data Lab results reviewed: Yes I reviewed the patient's lab results. 11/24/22 23:10 11/24/22 23:10 Labs: Lab Results 11/24/22 11/24/22 11/24/22 Range/Units 22:35 23:10 23:10 WBC 5.0 (4.5-11.0) X10^3/uL RBC 3.55 L (4.0-5.2) X10^6/uL Hgb 11.2 L (12.0-16.0) g/dL Hct 33.5 L (36-46) % MCV 94.5 (80-100) fL MCH 31.5 (26-34) PG MCHC 33.3 (30-36) % RDW 13.6 (11.6-14.8) % Plt Count 179 (150-400) X10^3/uL Neut % (Auto) 46.1 L (50-75) % Lymph % (Auto) 44.8 H (25-40) % [place] % (Auto) 7.1 (3-14) % Eos % (Auto) 1.2 L (2-4) % Baso % (Auto) 0.8 (0-2) % Neut # (Auto) 2300 (5785-3167) /uL Lymph # (Auto) 2200 (3338-7945) /uL [place] # (Auto) 400 (0-900) /uL Eos # (Auto) 100 (0-450) /uL Baso # (Auto) 0 (0-100) /uL Sodium 138 (137-145) mmol/L Potassium 4.7 (3.4-5.1) mmol/L Chloride 107 (98-107) mmol/L Carbon Dioxide 25 (22-32) mmol/L BUN 13 (7-17) mg/dL Creatinine 0.59 (0.52-1.04) mg/dL Estimated GFR > 60 (>60) mL/min BUN/Creatinine Ratio 22.0 (6-22) Glucose 86 (70-100) mg/dL Calcium 9.1 (8.4-10.2) mg/dL Urine Color Yellow Urine Appearance Clear Urine pH 6.0 (4.5-8.0) Ur Specific [place] >=1.030 H (1.000-1.035) Urine Protein 1+ H (Negative) Urine Glucose (UA) Negative (Negative) g/dL Urine Ketones Negative (NEGATIVE) Urine Occult Blood 3+ H (Negative) Urine Nitrate Negative (Negative) Urine Bilirubin Negative (NEGATIVE) Urine Urobilinogen 0.2 (0.2) E.U./dL Ur Leukocyte Esterase Negative (NEGATIVE) Urine RBC 30-100/hpf H (0-5/HPF) Urine WBC 1-5/hpf (0-5/HPF) Ur Squamous Epith Cells 1-5 /hpf (0-5/HPF) Urine Bacteria Few (2-10) H (None) Ur Culture Indicated? Cult not indicated MDM Narrative Medical decision making narrative: Patient's workup here in the emergency department is unremarkable. She does have hematuria but I have low suspicion for urinary tract infection. Review of her medical record shows that the urine culture from a couple days ago has had n o growth. She stated that she was going to continue the antibiotics on her own because she is already started the course of it. She is not retaining urine. Her kidney function is unremarkable. We will hold on further workup to include any radiologic studies for now. She potentially could be passing small stones that she knows that she had kidney stones during her last checkup. She was given return precautions and follow-up instructions. She expressed understanding and agreement. Discharge Plan Departure Patient Disposition: Home Clinical Impression: Hematuria Instructions: DI for Hematuria Activity Restrictions/Additional Instructions: I do recommend that you keep all of your scheduled medical appointments especially your appointments with your primary provider. Be sure that you are increasing your fluid intake. Return to the emergency department for fevers, pain that is not controlled, for inability to urinate. Prescriptions: No Action omeprazole 40 mg capsule,delayed release(DR/EC) 40 mg PO DAILY cefdinir 300 mg capsule 300 mg PO Q12H 5 Days Qty: 10 0RF Referrals: Miscellaneous,Doctor, MD [Primary Care Provider] - Stand Alone Forms: Patient Portal/API
[2022-11-24 23:06] LABS: Culture Indicated Urine Cult Not Indicated
[2022-11-24 23:20] LABS: Add Manual Diff / Slide Review NO; Basophils Absolute Auto 0 /uL (0-100); Basophils Percent Auto 0.8 % (0-2); Eosinophils Absolute Auto 100 /uL (0-450); Eosinophils Percent Auto 1.2 % (2-4); Hematocrit 33.5 % (36-46); Hemoglobin 11.2 g/dL (12.0-16.0); Lymphocytes Absolute Auto 2200 /uL (1100-4500); Lymphocytes Percent Auto 44.8 % (25-40); Mean Corpuscular HGB Conc 33.3 % (30-36); Mean Corpuscular Hemoglobin 31.5 PG (26-34); Mean Corpuscular Volume 94.5 fL (80-100); Monocytes Absolute Auto 400 /uL (0-900); Monocytes Percent Auto 7.1 % (3-14); Neutrophils Absolute Auto 2300 /uL (1500-7000); Neutrophils Percent Auto 46.1 % (50-75); Platelet Count 179 X10^3/uL (150-400); Red Blood Cell Count 3.55 X10^6/uL (4.0-5.2); Red Cell Distribution Width 13.6 % (11.6-14.8)
[2022-11-24 23:29] LABS: Blood Urea Nitrogen 13 mg/dL (7-17); Calcium 9.1 mg/dL (8.4-10.2); Carbon Dioxide 25 mmol/L (22-32); Chloride 107 mmol/L (98-107); Estimated Glomerular Filt Rate > 60 mL/min (>60); Glucose 86 mg/dL (70-100); HEMOLYSIS < 15 (0-50); Potassium 4.7 mmol/L (3.4-5.1); Sodium 138 mmol/L (137-145)
[2022-11-24 23:57] VITALS: BP 146/79; PULSE 60; RESP 16; O2SAT 100
== END 2022-11-24 23:57 | disposition home or self-care (01) ==
PROVIDERS: Emergency Provider Emergency Medicine
DX: R31.9 Hematuria, unspecified (principal)
CPT/HCPCS: 80048; 81001; 85025; 99281; 99283

== ENCOUNTER 2023-03-06 09:16 | Emergency (ER) | payer OTHER, SELFPAY ==
[2023-03-06 09:31] VITALS: BP 131/72; PULSE 71; RESP 16; TEMP 36.3; O2SAT 99; BMI 24.7
--- NOTE | 2023-03-06 09:48 | DI.CT.S_ITS ---
PROCEDURE: CT KIDNEY URETER BLADDER (KUB) INDICATIONS: R sided flank pain eval for stone TECHNIQUE: Axial sections were acquired from the lung bases to the pubic symphysis. Coronal and sagittal reformats were performed. For radiation dose reduction, the following was used: automated exposure control, adjustment of mA and/or kV according to patient size. COMPARISON: None. FINDINGS: Image quality: Excellent. Lung bases: Unremarkable. Heart: No significant findings. URINARY: Right Kidney: Moderate hydronephrosis. Punctate nonobstructing nephrolithiasis in the inferior pole. Fluid attenuating cysts. Right Ureter: Obstructing 3 mm stone in the right UVJ, resulting in moderate hydroureter. Left Kidney: Small burden of nonobstructing stones, which are punctate. Mild hydronephrosis. Left Ureter: Obstructing 9 mm stone in the distal left ureter (981 Hounsfield unit). Additional 2 mm nonobstructing stone more proximal within the distal ureter. Moderate hydroureter. Bladder: Normal wall thickness. No stones. ABDOMEN: Liver: Hepatic cysts. Gallbladder: Macro cholelithiasis Biliary ducts: Unremarkable. Pancreas: Unremarkable. Spleen: Unremarkable. Adrenal Glands: Unremarkable. Stomach and Bowel: Stomach, small bowel loops, and colon are unremarkable. Peritoneum: No abnormal intraperitoneal fluid. No free air. Ventral Wall: No hernia. Abdominal Nodes: No enlarged retroperitoneal or mesenteric lymph nodes. Vessels: Aorta and inferior vena cava are normal in size. PELVIS: Pelvic Organs: Unremarkable. Pelvic Nodes: Unremarkable. Miscellaneous: No inguinal hernias are seen. Bones: Unremarkable. IMPRESSION: Obstructing 3 mm stone in the right UVJ, resulting in moderate hydronephrosis. Obstructing stones in the distal left ureter measuring 9 mm and 2 mm. Moderate hydronephrosis. Dictated by: Killian Torres M.D. on 03/06/2023 at 10:19 Approved by: Killian Torres M.D. on 03/06/2023 at 10:23
--- NOTE | 2023-03-06 09:49 | ED_ITS ---
HPI - Back Pain/Injury General Chief Complaint: Back Pain/Injury Stated Complaint: poss passing kidney stone, low back pain Time Seen by Provider: 03/06/23 09:44 Source: patient Mode of arrival: Ambulatory Limitations: no limitations History of Present Illness HPI Narrative: Patient is a 49-year-old female who is here for evaluation of just over 12 hours of right-sided flank pain. She has had multiple kidney stones in the past and she states this feels very similar to that. She is having urinary frequency and hesitancy. No fevers. Some nausea but no vomiting. She is also concerned about potentially a gallbladder issue and her appendix. She has had to have procedures in the past to deal with her ureteral/kidney stones. Related Data Home Medications Medication Instructions Recorded Confirmed omeprazole 40 mg capsule,delayed 40 mg PO DAILY 11/22/22 11/22/22 release Previous Rx's Medication Instructions Recorded hydrocodone 5 mg-acetaminophen 325 1 tab PO Q4-6H PRN pain #14 tabs 03/06/23 mg tablet ondansetron 4 mg disintegrating 4 mg PO Q6H PRN nausea and 03/06/23 tablet vomiting #14 tabs Allergies Allergy/AdvReac Type Severity Reaction Status Date / Time No Known Drug Allergies Allergy Verified 11/22/22 14:59 Review of Systems Constitutional Constitutional: Reports system reviewed and no additional complaints, except as documented Cardiovascular Cardiovascular: Reports system reviewed and no additional complaints, except as documented Respiratory Respiratory: Reports system reviewed and no additional complaints, except as documented Gastrointestinal Gastrointestinal: Reports system reviewed and no additional complaints, except as documented Genitourinary Genitourinary: Reports system reviewed and no additional complaints, except as documented Integumentary/Breasts Skin/Breast: Reports system reviewed and no additional complaints, except as documented Neurologic Neurologic: Reports system reviewed and no additional complaints, except as documented Patient History Medical History (Updated 03/06/23 @ 10:52 by Luiz Casillas DO) Chronic pain of both knees History of breast cancer Surgical History History of mastectomy Social History household members: spouse Smoking Status: Never smoker Smoking Status: Never smoker alcohol intake frequency: a few times a week Substance Use Type: marijuana Exam Initial Vital Signs Initial Vital Signs: Vital Signs Temperature 97.4 F L 03/06/23 09:31 Pulse Rate 71 03/06/23 09:31 Respiratory Rate 16 03/06/23 09:31 Blood Pressure 131/72 03/06/23 09:31 Pulse Oximetry 99 03/06/23 09:31 Oxygen Delivery Method Room Air 03/06/23 09:31 HENMT Head: normal to inspection and normocephalic Resp Effort & Inspection: normal respiratory effort Cardio Rate: regular rate GI Inspection: normal to inspection and non-distended Palpation: No tender Back/Spine/Pelvis Other: Discomfort is located in the right flank but no specific CVA tenderness to palpation Neuro General: patient alert, patient awake and moves all extremities Course Orders Ordered: ED Orders 03/06/23 09:35 Complete Blood Count AUTO DIFF Stat Comprehensive Metabolic Panel Stat Lipase Stat Prothrombin Time INR Stat 03/06/23 09:37 Urine Microscopic Stat 03/06/23 09:48 CT kidney ureter bladder (KUB) Stat Ondansetron HCl (Ondansetron 4 Mg Odt) 4 mg PO NOW PRN PRN Reason: Nausea And Vomiting Ondansetron HCl (Ondansetron 4 Mg/2 Ml Inj) 4 mg IV NOW PRN PRN Reason: Nausea And Vomiting Discontinued Medications Ketorolac Tromethamine (Ketorolac 30 Mg/Ml Vial) 30 mg IV NOW ONE Stop: 03/06/23 09:49 Last Admin: 03/06/23 10:02 Dose: 30 mg Vital Signs Vital signs: Vital Signs - 8 hr 03/06/23 09:31 Temperature 97.4 F L Pulse Rate 71 Respiratory Rate 16 Blood Pressure 131/72 Pulse Oximetry 99 Oxygen Delivery Method Room Air MDM - Back Pain/Injury Lab Data Attestation: I reviewed the patient's lab results. 03/06/23 10:00 03/06/23 10:00 Labs: Lab Results 03/06/23 03/06/23 03/06/23 Range/Units 10:00 10:00 10:00 WBC 7.6 (4.5-11.0) X10^3/uL RBC 3.73 L (4.0-5.2) X10^6/uL Hgb 11.6 L (12.0-16.0) g/dL Hct 34.7 L (36-46) % MCV 93.1 (80-100) fL MCH 31.0 (26-34) PG MCHC 33.3 (30-36) % RDW 13.4 (11.6-14.8) % Plt Count 232 (150-400) X10^3/uL Neut % (Auto) 84.5 H (50-75) % Lymph % (Auto) 9.2 L (25-40) % [place] % (Auto) 5.7 (3-14) % Eos % (Auto) 0.0 L (2-4) % Baso % (Auto) 0.6 (0-2) % Neut # (Auto) 6400 (3038-9357) /uL Lymph # (Auto) 700 L (1735-1533) /uL [place] # (Auto) 400 (0-900) /uL Eos # (Auto) 0 (0-450) /uL Baso # (Auto) 0 (0-100) /uL PT 12.6 (10.1-12.7) SECONDS INR 1.1 (0.9-1.3) Sodium 136 L (137-145) mmol/L Potassium 4.2 (3.4-5.1) mmol/L Chloride 103 (98-107) mmol/L Carbon Dioxide 28 (22-32) mmol/L BUN 11 (7-17) mg/dL Creatinine 0.60 (0.52-1.04) mg/dL Estimated GFR > 60 (>60) mL/min BUN/Creatinine Ratio 18.3 (6-22) Glucose 115 H (70-100) mg/dL Calcium 9.5 (8.4-10.2) mg/dL Total Bilirubin 0.5 (0.2-1.3) mg/dL AST 34 (14-36) IU/L ALT 35 H (<35) IU/L Alkaline Phosphatase 129 H (38-126) U/L Total Protein 7.2 (6.3-8.2) g/dL Albumin 3.8 (3.5-5.0) g/dL Globulin 3.4 (1.7-4.1) g/dL Albumin/Globulin Ratio 1.1 (1.0-2.8) Lipase 36 (23-300) U/L Urine Dip Bedside Urine Glucose Negative Bedside Urine Bilirubin - Negative Bedside Urine Ketone - Negative Urine Specific [place] 1.020 Bedside Urine Occult Blood +++ Bedside Urine pH 6.0 Bedside Urine Protein - Negative Bedside Urine Urobilinogen - Negative Bedside Urine Nitrite - Negative Bedside Urine Leukocytes +/- [address] scan - abdomen/pelvis: Radiologist's Impression: PROCEDURE:? CT KIDNEY URETER BLADDER (KUB) ? INDICATIONS:? R sided flank pain eval for stone ? TECHNIQUE:? Axial sections were acquired from the lung bases to the pubic symphysis.? Odonnell l and sagittal reformats were performed.? For radiation dose reduction, the following was used: ?automated exposure control, adjustment of mA and/or kV according to patient size.? ? COMPARISON:? None. ? FINDINGS:? Image quality:? Excellent.? ? Lung bases:? Unremarkable.? ? Heart:? No significant findings. ? URINARY: Right Kidney:? Moderate hydronephrosis.? Punctate nonobstructing nephrolithiasis in the inferior pole.? Fluid attenuating cysts.? Right Ureter:? Obstructing 3 mm stone in the right UVJ, resulting in moderate hydroureter. ? Left Kidney:? Small burden of nonobstructing stones, which are punctate.? Mild hydronephrosis.? Left Ureter:? Obstructing 9 mm stone in the distal left ureter (981 Hounsfield unit).? Additional 2 mm nonobstructing stone more proximal within the distal ureter.? Moderate hydroureter. ? Bladder:? Normal wall thickness. No stones. ? ? ? ABDOMEN: Liver:? Hepatic cysts.? ? Gallbladder:? Macro cholelithiasis? ? Biliary ducts:? Unremarkable.? ? Pancreas:? Unremarkable.? ? Spleen:? Unremarkable.? ? Adrenal Glands:? Unremarkable.? ? ? Stomach and Bowel:? Stomach, small bowel loops, and colon are unremarkable.? Peritoneum:? No abnormal intraperitoneal fluid.? No free air.? ? Ventral Wall: ? No hernia.? Abdominal Nodes:? No enlarged retroperitoneal or mesenteric lymph nodes.? Vessels:? Aorta and inferior vena cava are normal in size.? ? PELVIS: Pelvic Organs:? Unremarkable.? ? Pelvic Nodes: Unremarkable. Miscellaneous: No inguinal hernias are seen. ? ? ? Bones:? Unremarkable. ? IMPRESSION:? ? Obstructing 3 mm stone in the right UVJ, resulting in moderate hydronephrosis. ? Obstructing stones in the distal left ureter measuring 9 mm and 2 mm.? Moderate hydronephrosis. [facility] Narrative Medical decision making narrative: Kidney function is unremarkable. Urinalysis does not show any signs of acute kidney injury. She does have a right-sided 3 mm ureteral stone which is what is causing her symptoms today. She also has 2 left-sided ureteral stones which are most likely chronic. She does have Flomax that she takes on a daily basis. Will discharge patient home with pain medicine and nausea medicine. She was also given information for follow-up with Urology. She was given return precautions. She expressed understanding and agreement with plan. Discharge Plan Departure Patient Disposition: Home Clinical Impression: Bilateral ureteral calculi Instructions: DI for Kidney Stones Activity Restrictions/Additional Instructions: I do recommend that you continue with the tamsulosin/Flomax. Use the nausea and pain medication as needed. I also recommend that tomorrow you contact the Urology Department at the number provided below for follow-up. Return to the emergency department for new or worsening symptoms. Prescriptions: New ondansetron 4 mg tablet,disintegrating 4 mg PO Q6H PRN (Reason: nausea and vomiting) Qty: 14 0RF hydrocodone-acetaminophen 5-325 mg tablet 1 tab PO Q4-6H PRN (Reason: pain) Qty: 14 0RF No Action omeprazole 40 mg capsule,delayed release(DR/EC) 40 mg PO DAILY Referrals: Miscellaneous,MD Mikhail [Primary Care Provider] - Andrea Yang MD [Physician] - Stand Alone Forms: Patient Portal/API
[2023-03-06] MEDS: KETOROLAC 30 MG/ML VIAL IV (10:02)
[2023-03-06 10:13] VITALS: BP 139/63; PULSE 64; O2SAT 99
[2023-03-06 10:16] LABS: Add Manual Diff / Slide Review NO; Basophils Absolute Auto 0 /uL (0-100); Basophils Percent Auto 0.6 % (0-2); Eosinophils Absolute Auto 0 /uL (0-450); Hematocrit 34.7 % (36-46); Hemoglobin 11.6 g/dL (12.0-16.0); Lymphocytes Absolute Auto 700 /uL (1100-4500); Lymphocytes Percent Auto 9.2 % (25-40); Mean Corpuscular HGB Conc 33.3 % (30-36); Mean Corpuscular Volume 93.1 fL (80-100); Monocytes Absolute Auto 400 /uL (0-900); Monocytes Percent Auto 5.7 % (3-14); Neutrophils Absolute Auto 6400 /uL (1500-7000); Neutrophils Percent Auto 84.5 % (50-75); Platelet Count 232 X10^3/uL (150-400); Red Blood Cell Count 3.73 X10^6/uL (4.0-5.2); Red Cell Distribution Width 13.4 % (11.6-14.8); White Blood Cell Count 7.6 X10^3/uL (4.5-11.0)
[2023-03-06 10:22] LABS: INR 1.1 (0.9-1.3); Prothrombin Time 12.6 SECONDS (10.1-12.7)
[2023-03-06 10:30] VITALS: BP 133/64; PULSE 65; O2SAT 99
[2023-03-06 10:30] LABS: Alanine Aminotransferase 35 IU/L (<35); Albumin 3.8 g/dL (3.5-5.0); Albumin Globulin Ratio 1.1 (1.0-2.8); Alkaline Phosphatase 129 U/L (38-126); Aspartate Aminotransferase 34 IU/L (14-36); BUN Creatinine Ratio 18.3 (6-22); Bilirubin Total 0.5 mg/dL (0.2-1.3); Blood Urea Nitrogen 11 mg/dL (7-17); Calcium 9.5 mg/dL (8.4-10.2); Carbon Dioxide 28 mmol/L (22-32); Chloride 103 mmol/L (98-107); Estimated Glomerular Filt Rate > 60 mL/min (>60); Globulin 3.4 g/dL (1.7-4.1); Glucose 115 mg/dL (70-100); HEMOLYSIS 16 (0-50); Lipase 36 U/L (23-300); Potassium 4.2 mmol/L (3.4-5.1); Sodium 136 mmol/L (137-145); Total Protein 7.2 g/dL (6.3-8.2)
[2023-03-06 11:00] VITALS: PULSE 69; O2SAT 98
[2023-03-06 11:13] LABS: Bacteria Urine Few (2-10); Culture Indicated Urine Specimen Cultured; RBC Urine 30-100/HPF (0-5/HPF); Squamous Epithelial Cell Urine 0-1 /HPF (0-5/HPF); WBC Urine 1-5/HPF (0-5/HPF)
== END 2023-03-06 11:05 | disposition home or self-care (01) ==
PROVIDERS: Emergency Provider Emergency Medicine
DX: N20.1 Calculus of ureter (principal)
CPT/HCPCS: 36415; 74176; 80053; 81003; 81015; 83690; 85025; 85610; 87086; 96374; 99284; J1885

== ENCOUNTER → 2023-03-08 18:24 | Outpatient (CLI) | payer OTHER, SELFPAY ==
--- NOTE | 2023-03-08 18:26 | DI.RAD.S_ITS ---
PROCEDURE: XR KUB INDICATIONS: Possible Kidney stones TECHNIQUE: One view of the abdomen acquired. COMPARISON: [facility], CT, CT KIDNEY URETER BLADDER (KUB), 03/06/2023, 9:58. FINDINGS: Surgical changes and devices: None. Bowel: Bowel gas pattern is normal. Soft tissues: No suspicious abdominal calcifications. Visualized solid organ contours appear normal in size. Pelvic calcifications present, bilateral of which could represent the ureteral stones seen on prior CT KUB. Pelvic phleboliths also noted. Bones: No suspicious bony lesions. IMPRESSION: Multiple pelvic calcifications redemonstrated bilateral which could represent the ureteral stones seen on prior CT KUB. Dictated by: Jaret GUSMAN Interpreted: Иван Zuleta MD on 03/08/2023 at 20:30 Transcribed by: NUPUR on 03/09/2023 at 8:29 Approved by: Иван Zuleta M.D. on 03/09/2023 at 11:05
== END ==
PROVIDERS: Referring Provider Specialist; Visit Provider Specialist
DX: N20.1 Calculus of ureter (principal)
CPT/HCPCS: 74018

== ENCOUNTER 2023-03-11 09:34 | Day surgery (SDC) | payer OTHER, SELFPAY ==
[2023-03-09 16:26] VITALS: BMI 25.6
[2023-03-11] VITALS (7 sets, daily range): BP systolic 133–163; BP diastolic 70–90; PULSE 53–74; RESP 12–16; TEMP 35.9–36.2; O2SAT 99–100; BMI 25.6
--- NOTE | 2023-03-11 | DI.RAD.S_ITS ---
PROCEDURE: XR ABDOMEN 1V INDICATIONS: LT STENT PLACEMENT - LASER TECHNIQUE: One view of the abdomen acquired. COMPARISON: None. Findings and impression: Intraoperative images were obtained for urologic procedure. A left stent is in place. Please see operative note for full details. Dictated by: Marek Garland M.D. on 03/11/2023 at 17:17 Approved by: Marek Garland M.D. on 03/11/2023 at 17:18
[2023-03-11] MEDS: LACTATED RINGERS 1,000 ML 21 ML IV (10:09)
--- NOTE | 2023-03-11 10:32 | PM.PREOP ---
Pre-operative Note Interval Note History & Physical reviewed/Exam performed by Physician: Yes Changes to H&P: No
[2023-03-11] MEDS: CEFAZOLIN 2 GM/100 ML PREMIX 100 ML IV (11:10)
--- NOTE | 2023-03-11 11:19 | SUR.OPER ---
Lithotomy on padded OR bed, head on pillow, arms secured on padded arm boards at <90 degrees abduction. Legs secured in padded yellow fins stirrups.
--- NOTE | 2023-03-11 12:41 | P.OP_ITS ---
Operative Date/Time/Diagnoses Date of procedure: 03/11/23 Time of procedure: 12:20 Pre-op diagnosis: 1. Obstructing distal ureteral calculi. 2. History of nephrolithiasis. 3. Recent history acute right renal colic. 4. Bilateral hydronephrosis. Post-op diagnosis: same Procedure & Clinicians Procedure: 1. Cystoscopy/left ureteroscopic laser lithotripsy. 2. Cystoscopy/placement left ureteral stent (7 Bahamian by 22-32 cm multi-length). 3. Systolic/right ureteroscopic stone extraction. Same procedure as scheduled: Yes Indications: 1. Obstructing bilateral distal ureteral calculi. 2. Recent history of acute right renal colic. 3. Bilateral hydronephrosis. 4. History of nephrolithiasis. Surgeon: Kristine Summers Click Yes if Unassisted: Yes Anesthesia Type: General Operative Notes Findings: 1. Urethra-normal caliber and position. 2. Bladder-grade 2 cystocele. Normal urothelium throughout. 3. Right ureter. Following balloon dilation the stone is noted to have crumbled in fragments expelled from the ureter after deflation of the balloon. Subsequent right ureteroscopy level ureteropelvic junction revealed no evidence of retained stone or fragment. 4. Left ureter-index 9 x 5 mm calculus encounter in unchanged position compared to preoperative imaging. There 2 additional calculi 1 measuring punctate 2 mm and another measuring 3 mm line immediately proximal to the index calculus. Closure Type: not applicable Specimen(s): none sent Applied: other (Seven Bah[place]ian by 20-32 cm multi-length.) Estimated Blood Loss (mL): 2 Blood products transfused: none Procedure in detail: Patient was positioned in supine administered general anesthesia. She was then repositioned in semi-lithotomy and the lower abdomen, genitalia, and groin were then prepped and draped in sterile fashion. The 22 [place]amian panendoscope was then passed and lower urinary tract with findings as described above. A 0.35 hybrid guidewire was then advanced into the right ureter under direct and fluoroscopic guidance. Over this a 15 [place]ian by 6 cm balloon dilating catheter was positioned across the right ureterovesical junction the balloon was then inflated to 18 atmospheres and held in place for 5 minutes. The balloon was then deflated and backloaded off the guidewire. Tiny Stone fragments were seen to admit from the right ureteral orifice. The hybrid guidewire was then secured to the surgical drape. The semi-rigid ureteroscope was then advanced into the bladder and then into the right ureter under direct and fluoroscopic guidance. The scope was advanced to the level of the right ureteral pelvic junction without evidence of retained stone or fragments. The semi rigid ureteral scope was then removed. Hybrid guidewire was then removed. The 0.35 hybrid guidewire was then passed through the panendoscope again and then advanced in the left ureteral orifice and then advanced proximally again under direct and fluoroscopic guidance. Again the 15 [place] by 6 cm balloon dilating catheter was passed over the hybrid guidewire and positioned across the left ureterovesical junction. The balloon again was inflated to 18 atmospheres and held in position for 5 minutes. The balloon was then deflated and backloaded off the hybrid guidewire. The panendoscope was backloaded off the guidewire. The hybrid guidewire was then secured to the surgical drape. The semi rigid ureteral scope was then prepared and then was advanced lower urinary tract and then into the left ureteral orifice and advanced proximally with the findings as described above. A 200 micron laser fiber was then requested in all operating personnel and patient were fitted with laser safety eyewear. Laser lithotripsy was then commenced with excellent subsequent fragmentation of this stones in the small fragments. Combination of hydrostatic and mechanical forces were used to guide the fragments down into the most distal segment of the ureter. Use of a basket was considered but not employed. The semi rigid ureteral scope was then removed. Hybrid guidewire was then front loaded into the patterson endoscope a 7 [place]ian by 22-32 cm multi-length stent was then selected and advanced over the hybrid guidewire under direct and fluoroscopic guidance. A RETRIEVAL LINE WAS LEFT ATTACHED. The bladder is then drained completely and all instrumentation removed. The patient was then repositioned in supine, was awakened, then transferred to [facility] awake and in stable condition. Complications: none Post-operative Condition: stable Disposition: PACU Plan for aftercare: Discharge home.
[2023-03-11] MEDS: OXYCODONE/ACETAMINOPHEN 5/325 TABLET 1 TAB PO (12:53)
[2023-03-11] MEDS: FUROSEMIDE 40 MG/4 ML VIAL 20 MG IV (12:53)
== END 2023-03-11 14:10 | disposition home or self-care (01) ==
PROVIDERS: Referring Provider Specialist; Visit Provider Specialist
PROC: (CPT 52356; principal; 2023-03-11 10:45)
DX: N13.2 Hydronephrosis with renal and ureteral calculous obstruction (principal)
CPT/HCPCS: 52356; 52352; 74018; 76000; 82962; J0330; J0690; J1100; J1940; J2405; J2704; J3010

== ENCOUNTER → 2023-06-15 18:49 | Outpatient (CLI) | payer OTHER, SELFPAY ==
--- NOTE | 2023-06-15 18:53 | DI.RAD.S_ITS ---
PROCEDURE: XR FOOT RT MIN 3V INDICATIONS: Right foot pain TECHNIQUE: 3 views of the foot were acquired. COMPARISON: None. FINDINGS: Bones: Mildly decreased mineralization. There is partially seen intact distal tibial and fibular hardware from prior fracture fixation. Moderate size plantar calcaneal spur and unfused os trigonum. No acute fractures. Probable postsurgical changes at the 2nd through 5th PIP joints. Bone alignment is within normal limits. Questionable periarticular erosive change at the lateral base of the 1st proximal phalanx and punctate calcification adjacent to the 1st metatarsal head. Soft tissues: No tibiotalar joint effusion. Achilles tendon appears normal. IMPRESSION: 1. 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 2. No other acute abnormalities. 3. Prior postsurgical changes as described. Dictated by: Sarah Pires M.D. on 06/16/2023 at 13:55 Approved by: Sarah Pires M.D. on 06/16/2023 at 13:59
== END ==
PROVIDERS: Referring Provider Nurse Practitioner Family; Visit Provider Nurse Practitioner Family
DX: M79.671 Pain in right foot (principal); Z98.890 Other specified postprocedural states
CPT/HCPCS: 73630

== ENCOUNTER → 2023-07-05 10:02 | Outpatient (CLI) | payer OTHER, SELFPAY ==
--- NOTE | 2023-07-05 10:39 | DI.RAD.S_ITS ---
PROCEDURE: XR KUB INDICATIONS: follow up imaging TECHNIQUE: One view of the abdomen acquired. COMPARISON: [facility], CR, XR KUB, 03/08/2023, 18:42. [facility], CR, XR ABDOMEN 1V, 03/11/2023, 12:32. FINDINGS: Surgical changes and devices: None. Bowel: Moderate fecal loading. Soft tissues: No calcified intrarenal calculi identified on radiography. A small round calcification is again seen adjacent to L3, possibly outside of the ureter on prior CT. Previous pelvic calcifications are less conspicuous. Bones: Degenerative changes. IMPRESSION: Small round calcification again seen adjacent to L3, possibly outside of the ureter on prior CT. No definite radiopaque uroliths. Previous pelvic calcifications are less conspicuous. If there is further concern, consider follow-up CT KUB. Dictated by: Marek Garland M.D. on 07/05/2023 at 14:21 Approved by: Marek Garland M.D. on 07/05/2023 at 14:23
[2023-07-05 12:07] LABS: Uric Acid 2.9 mg/dL (2.5-6.2)
== END ==
PROVIDERS: Referring Provider Specialist; Visit Provider Specialist
DX: N20.1 Calculus of ureter (principal); N13.30 Unspecified hydronephrosis
CPT/HCPCS: 36415; 74018; 82310; 84550

== ENCOUNTER → 2023-08-06 10:02 | Outpatient (CLI) | payer OTHER, SELFPAY ==
--- NOTE | 2023-08-06 10:03 | DI.CT.S_ITS ---
PROCEDURE: CT KIDNEY URETER BLADDER (KUB) INDICATIONS: L Ureteral Calculi TECHNIQUE: Axial sections were acquired from the lung bases to the pubic symphysis. Coronal and sagittal reformats were performed. For radiation dose reduction, the following was used: automated exposure control, adjustment of mA and/or kV according to patient size. COMPARISON: [facility], CT, CT KIDNEY URETER BLADDER (KUB), 03/06/2023, 9:58. FINDINGS: Image quality: Diagnostic. Lower Chest: No significant findings. URINARY: Right Kidney: No stones or hydronephrosis. Fluid attenuating cyst, as before. Right Ureter: No hydroureter. Left Kidney: Nonobstructed calculi (5) with the largest in the inferior pole measuring 2-3 millimeters. No hydronephrosis. Left Ureter: No hydroureter. Bladder: Normal wall thickness. No stones. ABDOMEN: Liver: Hepatic cysts. Gallbladder: Cholelithiasis without wall thickening or pericholecystic fluid. Biliary ducts: No biliary dilation. Pancreas: No ductal dilation. Spleen: Size is within normal limits. Adrenal Glands: No adrenal nodules. Stomach and Bowel: Normal colonic caliber, without significant wall thickening. Peritoneum: No abnormal intraperitoneal fluid. No free air. Ventral Wall: No hernia. Abdominal Nodes: No enlarged retroperitoneal or mesenteric lymph nodes. Vessels: Aorta and inferior vena cava are normal in size. PELVIS: Pelvic Organs: Unremarkable. Pelvic Nodes: Unremarkable. Miscellaneous: No inguinal hernias are seen. Bones: Unremarkable. IMPRESSION: Multiple (5) nonobstructing left renal calculi measuring 2-3 millimeters. No left hydroureteronephrosis. Approved by: Melody Carias M.D. on 08/08/2023 at 0:25
== END ==
LOC: CT 10:02
PROVIDERS: PCP Hospitalist; Referring Provider Specialist; Visit Provider Specialist
DX: N13.30 Unspecified hydronephrosis (principal); N20.0 Calculus of kidney; K76.89 Other specified diseases of liver; K80.20 Calculus of gallbladder without cholecystitis without obstruction; Z87.442 Personal history of urinary calculi
CPT/HCPCS: 74176

== ENCOUNTER → 2024-01-10 12:52 | Outpatient (CLI) | payer OTHER, SELFPAY ==
--- NOTE | 2024-01-13 10:30 | DIET.OUTPTC ---
Dietary Outpatient Consultation Note Consultation Date: 01/10/2024 Assessment: 58 y F referred to dietitian for cholelithiasis, left nephrolithiasis. Julissa Canas reports being sent over by her urologist to review diet to support kidney stone prevention/nutrition for kidney stones. Reviewed Urology note, which provided details on 10/18/23 Litholink indicating -1.55 L output, elevated oxalate, suboptimal citrate, study indicating no significant increase risk of calcium or uric acid stone formation. She reports PMH of bariatric surgery in 2018, resulting in her inability to tolerate processed foods or most breads. Eats small frequent, high protein meals, but finds it challenging to navigate restrictions that have resulted from her surgery and restrictions for kidney stone prevention. Diet recall: B-sausage and eggs L-leftovers/06/16 of sandwich D-leftover/14 of sandwich Multiple small snacks throughout day-consumes meats, poultry, and fish at eat meal/snack, additional bites of sandwich and works to incorporate fruits and vegetables 40 oz fluids -8 oz in morning and before bed Has recently stopped having high oxalate containing foods (spinach, potato skins, kendra greens) Ht: 5 ft 2 in Wt: 140 lb BMI: 25.6 Nutrition Diagnosis: Inadequate fluid intake r/t insufficient amount of water brought to work aeb recall with 40 oz daily of fluids Inadequate calcium intake r/t limited nutrition related educ aeb diet recall Interventions: 1. Adequate fluid intake -70-80 oz fluids (30 mL/kg) 2. Sufficient calcium intake with meals -Educ on needs, sources, and benefits for elevated oxalate 3. 5 fruits and vegetables daily -Educ on benefits 4. Elimination of very high oxalate foods -Educ provided, handout provided, highlighted very high oxalate food sources Goals: 1. Water bottle (20 oz) brought to work, additional water bottle (20 oz) after work 2. 1200 mg calcium per day, milk or yogurt after meals (too much liquid during meals results in early satiety r/t surgery) 3. 5 fruits and veg/day avoiding very oxalate choices 4. Continue small freq meals with sufficient protein intake Monitoring/Evaluations: F/u as needed or in 6 months after next litholink test Electronically Signed by: Kelly Waller 01/13/24 10:30 Clinical Dietitian [address] [address]
== END ==
PROVIDERS: PCP Hospitalist; Referring Provider Hospitalist
DX: K80.20 Calculus of gallbladder without cholecystitis without obstruction (principal); N20.0 Calculus of kidney; Z71.3 Dietary counseling and surveillance; Z68.25 Body mass index [BMI] 25.0-25.9, adult
CPT/HCPCS: 97802

== ENCOUNTER 2024-01-17 10:05 | Emergency (ER) | payer OTHER, SELFPAY ==
[2024-01-17] VITALS (14 sets, daily range): BP systolic 157–190; BP diastolic 74–104; PULSE 61–84; RESP 11–24; TEMP 37; O2SAT 94–100; BMI 27.4
--- NOTE | 2024-01-17 10:18 | EKG_ITS ---
[place] [id number] [place] [id number] Test Date: 2024-01-17 Pat Name: Julissa Zelaya Department: [facility] Room: Gender: Female Ortho Tech: KD : 1965 Requested By: Order Number: [id number] Reading MD: Shay Kiran MD Measurements Intervals [place] Rate: 63 P: 38 OH: 146 QRS: -15 QRSD: 86 T: 13 QT: 410 QTc: 419 Interpretive Statements Normal sinus rhythm Moderate voltage criteria for LVH, may be normal variant ( R in aVL , Central product ) Nonspecific T wave abnormality NO PRIOR TRACING Electronically Signed On 01-17-2024 13:37:43 PDT by Shay Kiran MD
--- NOTE | 2024-01-17 10:18 | DI.RAD.S_ITS ---
PROCEDURE: XR CHEST 1V INDICATIONS: chest pain TECHNIQUE: One view of the chest was acquired. COMPARISON: None. FINDINGS: Surgical changes and devices: None. Lungs and pleura: Lungs are clear. No pleural effusions or pneumothorax. Mediastinum: Mediastinal contours appear normal. Heart size is normal. Bones and chest wall: No suspicious bony lesions. Overlying soft tissues appear unremarkable. IMPRESSION: No acute cardiopulmonary abnormality is seen. Dictated by: Priscila Valverde MD, PhD on 01/17/2024 at 11:11 Approved by: Priscila Valverde MD, PhD on 01/17/2024 at 11:13
[2024-01-17 10:57] LABS: Add Manual Diff / Slide Review NO; Basophils Absolute Auto 100 /uL (0-100); Basophils Percent Auto 1.3 % (0-2); Eosinophils Absolute Auto 0 /uL (0-450); Eosinophils Percent Auto 0.5 % (2-4); Hematocrit 36.5 % (36-46); Hemoglobin 12.2 g/dL (12.0-16.0); Lymphocytes Absolute Auto 1800 /uL (1100-4500); Lymphocytes Percent Auto 24.7 % (25-40); Mean Corpuscular HGB Conc 33.3 % (30-36); Mean Corpuscular Hemoglobin 30.4 PG (26-34); Mean Corpuscular Volume 91.3 fL (80-100); Monocytes Absolute Auto 700 /uL (0-900); Monocytes Percent Auto 9.5 % (3-14); Neutrophils Absolute Auto 4600 /uL (1500-7000); Platelet Count 242 X10^3/uL (150-400); Red Cell Distribution Width 13.8 % (11.6-14.8); White Blood Cell Count 7.2 X10^3/uL (4.5-11.0)
[2024-01-17 11:00] LABS: INR 1.1 (0.9-1.3); Prothrombin Time 12.4 SECONDS (9.4-12.5)
[2024-01-17 11:02] LABS: PTT Partial Thromboplastin Tim 35 SECONDS (25.1-36.5)
[2024-01-17 11:04] LABS: Alanine Aminotransferase 42 IU/L (<35); Albumin 4.1 g/dL (3.5-5.0); Albumin Globulin Ratio 1.3 (1.0-2.8); Alkaline Phosphatase 125 U/L (38-126); Aspartate Aminotransferase 36 IU/L (14-36); BUN Creatinine Ratio 14.3 (6-22); Bilirubin Total 0.6 mg/dL (0.2-1.3); Blood Urea Nitrogen 8 mg/dL (7-17); Calcium 9.7 mg/dL (8.4-10.2); Carbon Dioxide 24 mmol/L (22-32); Chloride 110 mmol/L (98-107); Creatine Kinase 72 U/L (30-135); Estimated Glomerular Filt Rate > 60 mL/min (>60); Globulin 3.1 g/dL (1.7-4.1); Glucose 92 mg/dL (70-100); HEMOLYSIS < 15 (0-50); Lipase 300 U/L (23-300); Magnesium 1.9 mg/dL (1.6-2.3); Potassium 3.8 mmol/L (3.4-5.1); Sodium 141 mmol/L (137-145); Total Protein 7.2 g/dL (6.3-8.2)
[2024-01-17 11:17] LABS: NT-proBNP (BNP-Adult 18+) 65 pg/mL (<125); Troponin I < 0.012 ng/mL (0.01-0.034)
--- NOTE | 2024-01-17 12:57 | ED.CHESTPAIN ---
HPI - Chest Pain General Chief Complaint: Chest Pain Stated Complaint: Pain on right side of chest,right neck is swollen Time Seen by Provider: 01/17/24 12:57 Source: patient, RN notes reviewed and old records reviewed Mode of arrival: Ambulatory Limitations: no limitations History of Present Illness HPI narrative: 58-year-old female with a history of breast cancer with mastectomy on the left side, prior bariatric surgery, GERD, prior DVT provoked by ankle fracture who presents with complaint of right upper chest discomfort underneath the clavicle she was like there some swelling of the chest did not area, it sometimes radiates up towards her neck sometimes towards her shoulder sometimes worsened with lifting of the shoulder. Pain does sometimes radiate down her right arm. Denies any numbness tingling. No weakness. Has had similar symptoms in the past. She denies any fevers or chills no cold cough congestion. States initially it felt like she had had a workout and had lifted a lot of weights but then became more of a burning sensation. Denies any shortness of breath, no cold cough or congestion. States she has been ambulating walking about without any issue does not exacerbate symptoms. Patient has not had any nausea or vomiting no syncope. Patient's only home medications Prilosec she was taken bariatric vitamin daily. She tried to leave yesterday with minimal improvement has a history significant for left-sided mastectomy for breast cancer, never had a port on the right but has had a right breast reduction in the past, prior bariatric surgery, ORIF for her right lower extremity developed a DVT with that was on anticoagulation for a year, has had left ankle surgery as well. Has had lithotripsy for kidney stones and prior cyst. No known drug allergies. No tobacco, alcohol or recreational drugs and occasional THC use. Primary care is at [facility] Related Data Home Medications Medication Instructions Recorded Confirmed omeprazole 40 mg capsule,delayed 40 mg PO DAILY 11/22/22 06/15/23 release Previous Rx's Medication Instructions Recorded cyclobenzaprine 10 mg tablet 10 mg PO Q8H PRN muscle spasm #10 01/17/24 tabs Allergies Allergy/AdvReac Type Severity Reaction Status Date / Time potassium citrate AdvReac Severe Full body Uncoded 11/30/23 08:27 cramps Review of Systems Review of Systems ROS Unobtainable: All systems reviewed & are unremarkable except as noted in HPI and below Patient History Medical History Cholelithiasis Left nephrolithiasis Bilateral hydronephrosis Hx of nephrolithotomy with removal of calculi History of kidney stones History of depression History of arthritis History of anemia Chronic pain of both knees History of breast cancer Surgical History History of tubal ligation History of breast biopsy History of mastectomy Family History Aunt Cancer Father Kidney stones Social History marital status: number of children: 4 household members: spouse Smoking Status: Never smoker Smoking Status: Never smoker alcohol intake frequency: a few times a week Substance Use Type: marijuana Exam Narrative Exam Narrative: GEN: well nourished, well appearing female, alert and oriented x 3, patient appears to be in mild distress. HEENT: Atraumatic, pupils are equal round reactive to light, extraocular movements are intact, nares are clear, there is no conjunctival pallor. Throat is clear without any exudates, erythema, tonsillar enlargement or uvular deviation HEART: Regular rate and rhythm without murmur, clicks, rubs. No carotid bruits, pulses are equal in upper and lower extremities, no obvious deformity patient does have some tenderness over the costochondral region with palpation, no enlarged lymph nodes palpated supraclavicularly. Patient has good range of motion. No other bony tenderness. Does have some tightness of the right-sided neck. She does have full full range of motion. LUNGS:Lungs clear to auscultation, no wheezes, rales, crackles, chest moves symmetrically, no tachypnea accessory muscle use ABD:bowel sounds normal, soft, non-tender, no guarding, rebound, rigidity, no masses noted, no hepatosplenomegaly :No CVA tenderness MSCL: Non-tender, no muscle atrophy, muscles strength 5/5 upper and lower extremities, full range of motion, normal gait NEURO:CN 2-12 intact, sensation normal SKIN: No rash, erythema or other skin changes. Initial Vital Signs Initial Vital Signs: Vital Signs Pulse Rate 71 01/17/24 10:13 Blood Pressure 190/91 H 01/17/24 10:13 Pulse Oximetry 100 01/17/24 10:13 Course Orders Ordered: Discontinued Medications Ketorolac Tromethamine (Ketorolac 30 Mg/Ml Vial) 15 mg IV NOW ONE Stop: 01/17/24 13:18 Last Admin: 01/17/24 13:23 Dose: 15 mg Documented By: SCARLETT Vital Signs Vital signs: Vital Signs - 8 hr 01/17/24 10:13 01/17/24 10:13 01/17/24 10:19 Temperature 98.6 F Pulse Rate 71 70 Respiratory Rate 18 Blood Pressure 190/91 H 190/91 H Pulse Oximetry 100 99 Oxygen Delivery Method Room Air 01/17/24 10:30 01/17/24 11:00 01/17/24 12:06 Temperature Pulse Rate 65 63 61 Respiratory Rate 16 16 Blood Pressure Pulse Oximetry 98 99 94 Oxygen Delivery Method 01/17/24 12:07 01/17/24 12:07 01/17/24 12:30 Temperature Pulse Rate 69 66 Respiratory Rate 11 L 16 Blood Pressure 167/104 H Pulse Oximetry 100 98 Oxygen Delivery Method 01/17/24 12:31 01/17/24 12:31 01/17/24 13:00 Temperature Pulse Rate 66 70 Respiratory Rate 18 14 Blood Pressure 157/78 H Pulse Oximetry 99 99 Oxygen Delivery Method 01/17/24 13:00 01/17/24 13:34 01/17/24 14:00 Temperature Pulse Rate 65 61 Respiratory Rate 19 16 Blood Pressure 159/80 H Pulse Oximetry 98 98 Oxygen Delivery Method 01/17/24 14:30 01/17/24 15:00 Temperature Pulse Rate 84 71 Respiratory Rate 24 Blood Pressure Pulse Oximetry 98 Oxygen Delivery Method MDM - Chest Pain Lab Data 01/17/24 10:45 01/17/24 10:45 Labs: Lab Results 01/17/24 01/17/24 Range/Units 10:45 13:57 WBC 7.2 (4.5-11.0) X10^3/uL RBC 4.00 (4.0-5.2) X10^6/uL Hgb 12.2 (12.0-16.0) g/dL Hct 36.5 (36-46) % MCV 91.3 (80-100) fL MCH 30.4 (26-34) PG MCHC 33.3 (30-36) % RDW 13.8 (11.6-14.8) % Plt Count 242 (150-400) X10^3/uL Neut % (Auto) 64.0 (50-75) % Lymph % (Auto) 24.7 L (25-40) % Reagan % (Auto) 9.5 (3-14) % Eos % (Auto) 0.5 L (2-4) % Baso % (Auto) 1.3 (0-2) % Neut # (Auto) 4600 (2922-4353) /uL Lymph # (Auto) 1800 (2939-7877) /uL Reagan # (Auto) 700 (0-900) /uL Eos # (Auto) 0 (0-450) /uL Baso # (Auto) 100 (0-100) /uL PT 12.4 (9.4-12.5) SECONDS INR 1.1 (0.9-1.3) APTT 35 (25.1-36.5) SECONDS Sodium 141 (137-145) mmol/L Potassium 3.8 (3.4-5.1) mmol/L Chloride 110 H (98-107) mmol/L Carbon Dioxide 24 (22-32) mmol/L BUN 8 (7-17) mg/dL Creatinine 0.56 (0.52-1.04) mg/dL Estimated GFR > 60 (>60) mL/min BUN/Creatinine Ratio 14.3 (6-22) Glucose 92 (70-100) mg/dL Calcium 9.7 (8.4-10.2) mg/dL Magnesium 1.9 (1.6-2.3) mg/dL Total Bilirubin 0.6 (0.2-1.3) mg/dL AST 36 (14-36) IU/L ALT 42 H (<35) IU/L Alkaline Phosphatase 125 (38-126) U/L Total Creatine Kinase 72 (30-135) U/L Troponin I < 0.012 < 0.012 (0.01-0.034) ng/mL NT-Pro-B Natriuret Pep 65 (<125) pg/mL Total Protein 7.2 (6.3-8.2) g/dL Albumin 4.1 (3.5-5.0) g/dL Globulin 3.1 (1.7-4.1) g/dL Albumin/Globulin Ratio 1.3 (1.0-2.8) Lipase 300 (23-300) U/L Urine Dip Bedside Urine Glucose Negative Bedside Urine Bilirubin - Negative Bedside Urine Ketone - Negative Urine Specific [place] 1.010 Bedside Urine Occult Blood - Negative Bedside Urine pH 6.5 Bedside Urine Protein - Negative Bedside Urine Urobilinogen - Negative Bedside Urine Nitrite - Negative Bedside Urine Leukocytes - Negative Esterase Imaging Data Chest x-ray: Radiologist's Impression: [address] [address] XRay Report Signed Patient: Julissa Zelaya MR#: [id number] : 1965 Acct:[id number] Age/Sex: 58 / F Date of Service: 01/17/24 Loc: ED Accession Number: [id number] Procedure: XR chest 1V Ordering Provider: Parvin Nunes D.O. PROCEDURE: XR CHEST 1V INDICATIONS: chest pain TECHNIQUE: One view of the chest was acquired. COMPARISON: None. FINDINGS: Surgical changes and devices: None. Lungs and pleura: Lungs are clear. No pleural effusions or pneumothorax. Mediastinum: Mediastinal contours appear normal. Heart size is normal. Bones and chest wall: No suspicious bony lesions. Overlying soft tissues appear unremarkable. IMPRESSION: No acute cardiopulmonary abnormality is seen. Dictated by: Priscila Valverde MD, PhD on 01/17/2024 at 11:11 Approved by: Priscila Valverde MD, PhD on 01/17/2024 at 11:13 CT scan - chest: Radiologist's Impression: Close Chest CTA (Signed) Stanton Parker - 01/17/24 Chest X-Ray (Signed) Priscila Valverde - 01/17/24 Abdomen/Pelvis CT (Signed) Melody Carias - 08/06/23 KUB X-Ray (Signed) Marek Garland - 07/05/23 Foot X-Ray (Signed) Sarah Pires - 06/15/23 Abdomen X-Ray (Signed) Marek Garland - 03/11/23 KUB X-Ray (Signed) Иван Zuleta - 03/08/23 Abdomen/Pelvis CT (Signed) Killian Torres - 03/06/23 Abdomen/Pelvis CT (Signed) Dc Dougherty - 10/22/19 Vascular Ultrasound (Signed) Pato Ramso - 06/10/18 Knee X-Ray (Signed) Richard,Scott - 06/10/18 Telemetry Strips 05/24/18 Launch?Image [address] [address] [address] Scan Report Signed Patient: Julissa Zelaya MR#: [id number] : 1965 Acct:[id number] Age/Sex: 58 / F Date of Service: 01/17/24 Loc: ED Accession Number: [id number] Procedure: CT angio chest PE protocol Ordering Provider: Parvin Nunes D.O. PROCEDURE: CT ANGIO CHEST PE PROTOCOL INDICATIONS: RU chest pain, hx mastec on L, reduc R remote, hx dvt remote TECHNIQUE: After the administration of intravenous contrast, 2 mm thick sections acquired from the pulmonary apices to the posterior costophrenic angles. 3-dimensional maximum intensity projection (MIP) coronal and sagittal reformats were then acquired through the thorax. For radiation dose reduction, the following was used: automated exposure control, adjustment of mA and/or kV according to patient size. COMPARISON: [facility], CT, CT KIDNEY URETER BLADDER (KUB), 08/06/2023, 10:15. FINDINGS: Image quality: Diagnostic. Pulmonary arteries: Pulmonary arteries are normal in size, and demonstrate no intraluminal filling defects to suggest central pulmonary embolism. Lower Neck: No enlarged lymph nodes. Thyroid: No thyroid nodules which require sonographic follow up, per consensus guidelines. Axillae: No enlarged lymph nodes. Chest Wall: Unremarkable. Bones: Unremarkable. Lungs and Pleura: No pneumothorax or pleural effusions. No consolidation or suspicious nodules. Heart: Heart size is normal. There is calcification of the coronary vasculature. No pericardial effusion. Thoracic Vessels: No aortic aneurysm. Mediastinum and Karyn: 15 mm anteroposterior by 26 mm transverse anterior mediastinal soft tissue density. Esophagus: There is moderate distal esophageal thickening.. Upper Abdomen: Visualized portions of the upper abdomen demonstrate multiple calculi within the gallbladder lumen. Gastric stapling has been performed. IMPRESSION: 1. No acute process. 2. No pulmonary embolus. 3. Distal esophageal thickening, possibly indicating neoplasm. Endoscopy recommended for further assessment. 4. Indeterminate anterior mediastinal soft tissue density, possibly indicating lymphadenopathy. PET-CT examination may be helpful for further assessment. 5. Cholelithiasis. Dictated by: Stanton Parker M.D. on 01/17/2024 at 13:43 Approved by: Stanton Parker M.D. on 01/17/2024 at 13:48 ECG Data Attestation: I personally reviewed and interpreted this ECG as follows: Prior ECG tracings: not available for review Interpretation: Sinus rhythm rate of 63 IA 146 QRS 86 QTC of 419. No priors for comparison. MDM Narrative Medical decision making narrative: Labs show white count of 7.2 hemoglobin of 12 platelets of 242, Coags are negative, sodium is 141 potassium 3.8 chloride 110 CO2 is 24 BUN 8 creatinine 0.56 glucose is 92 LFTs are negative ALT is 42. Troponins less than 0.012, BNP 650. Lipase is normal. Troponin was repeated and is less than 0.012. Point of care urine is negative EKG shows normal sinus rhythm, no acute EKG changes. No priors for comparison. Chest x-ray shows no acute change. CT angio, shows no acute change no PE distal esophageal thickening possibly indicating neoplasm versus other endoscopy recommended for further assessment indeterminate anterior mediastinal soft tissue density 15 mm x 26 mm possibly lymphadenopathy PET-CT exam maybe helpful, cholelithiasis. Patient notes that she did have a DVT remotely but was provoked by surgery, has right-sided chest pain but also goes up into her neck, shoulder has some component to movement with neck and shoulder as well. Not worsened with ambulation. Has been present for some time and intermittently sometimes on the left side. Discussed with patient, her findings she has been getting endoscopy annually for reflux, she is now on an every other year schedule but is been contacted to schedule an endoscopy. Patient will call to set up this. Reviewed her findings on her CT as well she has had a lot of prior imaging gave her a disc to compare with the primary care physician or they can follow up with PET-CT. Discharge Plan Departure Patient Disposition: Home Clinical Impression: Right-sided chest pain Activity Restrictions/Additional Instructions: Your imaging today does show some thickening of the esophagus, it is recommended to have endoscopy to further evaluate this area. Follow-up to schedule your endoscopy and colonoscopy. Share this information with your providers who normally perform these. There has also a little bit of a density in the anterior mediastinal soft tissue that is 15 mm x 26 mm in size. Follow up for this would be with a PET-CT. Your primary care can arrange this for if you still follow with oncology they can arrange to have this imaging. Talk with your physician copy of the images included they may wish to just compare this to see if this is a new spot or on your old imaging. You can take 1 tablet every 8 hours as needed for muscle spasm. This medication can make you sleepy do not drive, perform has a activities or make any major decisions while taking it. Prescription sent to [facility] in [place]. Please return for new or worsening symptoms, lightheadedness or passing out, or worsening chest pain, shortness of breath, persistent vomiting, or other new or concerning changes. Prescriptions: New cyclobenzaprine 10 mg tablet 10 mg PO Q8H PRN (Reason: muscle spasm) Qty: 10 0RF No Action omeprazole 40 mg capsule,delayed release(DR/EC) 40 mg PO DAILY Referrals: Martha Marsh MD [Primary Care Provider] - Stand Alone Forms: Patient Portal/API
[2024-01-17] MEDS: KETOROLAC 30 MG/ML VIAL 15 MG IV (13:23)
--- NOTE | 2024-01-17 13:35 | DI.CT.S_ITS ---
PROCEDURE: CT ANGIO CHEST PE PROTOCOL INDICATIONS: RU chest pain, hx mastec on L, reduc R remote, hx dvt remote TECHNIQUE: After the administration of intravenous contrast, 2 mm thick sections acquired from the pulmonary apices to the posterior costophrenic angles. 3-dimensional maximum intensity projection (MIP) coronal and sagittal reformats were then acquired through the thorax. For radiation dose reduction, the following was used: automated exposure control, adjustment of mA and/or kV according to patient size. COMPARISON: [facility], CT, CT KIDNEY URETER BLADDER (KUB), 08/06/2023, 10:15. FINDINGS: Image quality: Diagnostic. Pulmonary arteries: Pulmonary arteries are normal in size, and demonstrate no intraluminal filling defects to suggest central pulmonary embolism. Lower Neck: No enlarged lymph nodes. Thyroid: No thyroid nodules which require sonographic follow up, per consensus guidelines. Axillae: No enlarged lymph nodes. Chest Wall: Unremarkable. Bones: Unremarkable. Lungs and Pleura: No pneumothorax or pleural effusions. No consolidation or suspicious nodules. Heart: Heart size is normal. There is calcification of the coronary vasculature. No pericardial effusion. Thoracic Vessels: No aortic aneurysm. Mediastinum and Karyn: 15 mm anteroposterior by 26 mm transverse anterior mediastinal soft tissue density. Esophagus: There is moderate distal esophageal thickening.. Upper Abdomen: Visualized portions of the upper abdomen demonstrate multiple calculi within the gallbladder lumen. Gastric stapling has been performed. IMPRESSION: 1. No acute process. 2. No pulmonary embolus. 3. Distal esophageal thickening, possibly indicating neoplasm. Endoscopy recommended for further assessment. 4. Indeterminate anterior mediastinal soft tissue density, possibly indicating lymphadenopathy. PET-CT examination may be helpful for further assessment. 5. Cholelithiasis. Dictated by: Stanton Parker M.D. on 01/17/2024 at 13:43 Approved by: Stanton Parker M.D. on 01/17/2024 at 13:48
[2024-01-17 14:28] LABS: Troponin I < 0.012 ng/mL (0.01-0.034)
== END 2024-01-17 15:23 | disposition home or self-care (01) ==
PROVIDERS: Emergency Provider Emergency Medicine; PCP Hospitalist
DX: R07.9 Chest pain, unspecified (principal); M54.2 Cervicalgia
CPT/HCPCS: 36415; 71045; 71275; 80053; 81003; 82550; 83690; 83735; 83880; 84484; 85025; 85610; 85730; 93005; 93010; 96374; 99284; J1885; Q9967

== ENCOUNTER → 2025-03-25 14:04 | Outpatient (CLI) | payer OTHER, SELFPAY ==
--- NOTE | 2025-03-25 14:06 | DI.RAD.S_ITS ---
PROCEDURE: XR KUB INDICATIONS: Nephrolithiasis/cholelithiasis TECHNIQUE: One view of the abdomen acquired. COMPARISON: CT, CT KIDNEY URETER BLADDER (KUB), 08/06/2023, 10:15. [facility], CR, XR KUB, 07/05/2023, 10:56. FINDINGS: Surgical changes and devices: Gallbladder is been removed. Bowel: Bowel gas pattern is normal. Mild scattered stool. Soft tissues: No suspicious abdominal calcifications. Prominent stool overlies the renal shadows. No evident calcifications. Unchanged calcification to the left of the L3-4 vertebral body unchanged from 2023. Visualized solid organ contours appear normal in size. Bones: No suspicious bony lesions. IMPRESSION: No definitive calcifications overlying the renal shadows as above. Dictated by: Maribel Bowden M.D. on 03/25/2025 at 17:14 Approved by: Maribel Bowden M.D. on 03/25/2025 at 17:15
== END ==
PROVIDERS: PCP Hospitalist; Referring Provider Urology; Visit Provider Urology
DX: K80.21 Calculus of gallbladder without cholecystitis with obstruction (principal); N20.0 Calculus of kidney
CPT/HCPCS: 74018

== ENCOUNTER 2025-04-09 15:02 | Emergency (ER) | payer OTHER, SELFPAY ==
[2025-04-09] VITALS (15 sets, daily range): BP systolic 113–215; BP diastolic 56–91; PULSE 69–85; RESP 12–61; TEMP 36.7–36.9; O2SAT 96–99; BMI 29.2
[2025-04-09 16:02] LABS: Alanine Aminotransferase 648 IU/L (<35); Albumin 4.1 g/dL (3.5-5.0); Albumin Globulin Ratio 1.2 (1.0-2.8); Alkaline Phosphatase 300 U/L (38-126); Blood Urea Nitrogen 7 mg/dL (7-17); Calcium 9.5 mg/dL (8.4-10.2); Carbon Dioxide 26 mmol/L (22-32); Chloride 105 mmol/L (98-107); Estimated Glomerular Filt Rate > 60 mL/min (>60); Globulin 3.4 g/dL (1.7-4.1); Glucose 138 mg/dL (70-99); HEMOLYSIS < 15 (0-50); Lipase 53 U/L (23-300); Potassium 3.9 mmol/L (3.4-5.1); Sodium 137 mmol/L (137-145); Total Protein 7.5 g/dL (6.3-8.2)
[2025-04-09 16:04] LABS: Add Manual Diff / Slide Review NO; Hematocrit 38.6 % (36-46); Hemoglobin 13.0 g/dL (12.0-16.0); Lymphocytes Absolute Auto 1000 /uL (1100-4500); Mean Corpuscular HGB Conc 33.6 % (30-36); Mean Corpuscular Hemoglobin 30.3 PG (26-34); Mean Corpuscular Volume 90.0 fL (80-100); Platelet Count 262 X10^3/uL (150-400)
[2025-04-09 17:18] LABS: Ictotest Urine Positive (Negative)
[2025-04-09 17:19] LABS: Culture Indicated Urine Cult Not Indicated
--- NOTE | 2025-04-09 19:33 | EKG_ITS ---
[facility] [address] [place] [address] Test Date: 2025-04-09 Pat Name: Julissa Zelaya Department: [facility] Room: Gender: Female [employer]: IZA : 1965 Requested By: Order Number: [id number] Reading MD: Shay Kiran MD Measurements Intervals [place] Rate: 71 P: 13 MT: 126 QRS: -17 QRSD: 86 T: -1 QT: 396 QTc: 430 Interpretive Statements Normal sinus rhythm Moderate voltage criteria for LVH, may be normal variant ( R in aVL , [place] product ) Anterior infarct , age undetermined Electronically Signed On 04-21-2025 8:58:38 PST by Shay Kiran MD
--- NOTE | 2025-04-09 19:40 | PC.NURSE ---
Pt lying in ED stretcher with eyes closed and rouses easily upon RN entrance into exam room. Pt engages appropriately and described upper abd pain with intermittent spasm/squeezing feeling, n/v since early in the AM. States normal BM's w/o difficulty. States most comfortable position is lying on left side. Pt ambulatory to restroom without difficulty or assistance to restroom at this time. Continued plan of care discussed. Reconnected to cardiac, resp, pulse ox, and blood pressure monitors with alarms on and audible. VS stable at this time. Call light within reach. No further requests or concerns at this time. remains at bedside.
--- NOTE | 2025-04-09 21:05 | ED.ABDPAIN ---
HPI - Abdominal Pain General Chief Complaint: Abdominal Pain Stated Complaint: Stomach spasms, dizziness, vomiting Time Seen by Provider: 04/09/25 21:05 Source: patient Mode of arrival: Ambulatory History of Present Illness HPI narrative: 59-year-old female patient with a history of previous morbid obesity with bariatric procedure. Also has hepatic steatosis, Cholelithiasis and nephrolithiasis who complains of recurrent abdominal pain and spasms with nausea and vomiting which has been occurring intermittently for over a year since she had her gallbladder removed. She had an episode of vomiting after dinner last night and some heartburn but then at 1 in the morning experienced epigastric and right upper quadrant pain persisting till she came to the ER. He is now at a 4/10 and a fullness feeling and no nausea currently. No fever or chills. Related Data Home Medications ?Medication ?Instructions ?Recorded ?Confirmed omeprazole 40 mg capsule,delayed 40 mg PO DAILY 11/22/22 06/15/23 release Previous Rx's ?Medication ?Instructions ?Recorded cyclobenzaprine 10 mg tablet 10 mg PO Q8H PRN muscle spasm #10 01/17/24 tabs Allergies Allergy/AdvReac Type Severity Reaction Status Date / Time potassium citrate AdvReac Severe Full body Uncoded 11/30/23 08:27 cramps Review of Systems Review of Systems ROS Unobtainable: All systems reviewed & are unremarkable except as noted in HPI and below Gastrointestinal Gastrointestinal: Reports as per HPI Patient History Medical History Cholelithiasis Left nephrolithiasis Bilateral hydronephrosis Hx of nephrolithotomy with removal of calculi History of kidney stones History of depression History of arthritis History of anemia Chronic pain of both knees History of breast cancer Surgical History History of tubal ligation History of breast biopsy History of mastectomy Family History Aunt Cancer Father Kidney stones Social History marital status: number of children: 4 household members: spouse Smoking Status: Never smoker Smoking Status: Never smoker alcohol intake frequency: a few times a week Exam Narrative Exam Narrative: General: Alert and conversant. No distress. Appears well nourished and well hydrated Lungs: Clear to auscultation with good air movement. No wheezing, rales or rhonchi. No respiratory distress Cardiac: Regular rate and rhythm with no appreciable murmur or gallop Abdomen: Soft, mild epigastric tenderness. With no distention or masses. Normal bowel sounds. No rebound or guarding Musculoskeletal: Exam of the extremities, axial spine and ribcage reveals no deformity, bony tenderness or swelling. Range of motion intact Neuro: Alert and oriented. Cranial nerves, motor, sensory and cerebellar all grossly intact. No focal deficit Skin: Warm and normal color. No rashes Psychological: Normal affect and interaction. No evidence of delusion or psychosis. Normal mood. Initial Vital Signs Initial Vital Signs: Vital Signs Temperature 98.1 F 04/09/25 15:27 Pulse Rate 85 04/09/25 15:27 Respiratory Rate 18 04/09/25 15:27 Blood Pressure 215/91 H 04/09/25 15:27 Pulse Oximetry 99 04/09/25 15:27 Oxygen Delivery Method Room Air 04/09/25 15:27 Course Orders Ordered: ED Orders 04/09/25 15:33 EKG-12 Lead Stat 04/09/25 15:38 Complete Blood Count AUTO DIFF Stat Comprehensive Metabolic Panel Stat Lipase Stat 04/09/25 16:53 Ictotest Urine Stat Urine Microscopic Stat 04/09/25 22:23 CT abdomen pelvis w con Stat Ondansetron HCl (Ondansetron 4 Mg/2 Ml Inj) 4 mg IV NOW PRN PRN Reason: Nausea And Vomiting Ondansetron HCl (Ondansetron 4 Mg Odt) 4 mg PO NOW PRN PRN Reason: Nausea And Vomiting Discontinued Medications Morphine Sulfate (Morphine 4 Mg/Ml Inj) 4 mg IV NOW ONE Stop: 04/09/25 22:26 Last Admin: 04/09/25 22:30 Dose: 4 mg Documented By: DELL Ondansetron HCl (Ondansetron 4 Mg/2 Ml Inj) 4 mg IV NOW ONE Stop: 04/09/25 22:26 Last Admin: 04/09/25 22:30 Dose: 4 mg Documented By: DELL Vital Signs Vital signs: Vital Signs - 8 hr 04/09/25 15:27 04/09/25 17:37 04/09/25 17:37 Temperature 98.1 F 98.4 F Pulse Rate 85 76 Respiratory Rate 18 Blood Pressure 215/91 H 157/70 H Pulse Oximetry 99 98 Oxygen Delivery Method Room Air 04/09/25 18:00 04/09/25 18:00 04/09/25 18:30 Temperature Pulse Rate 76 73 Respiratory Rate 24 18 Blood Pressure 145/70 H Pulse Oximetry 99 98 Oxygen Delivery Method 04/09/25 18:30 04/09/25 19:00 04/09/25 19:00 Temperature Pulse Rate 70 Respiratory Rate 12 Blood Pressure 138/73 113/56 L Pulse Oximetry 98 Oxygen Delivery Method 04/09/25 19:30 04/09/25 19:30 04/09/25 20:00 Temperature Pulse Rate 76 77 Respiratory Rate 19 19 Blood Pressure 132/73 Pulse Oximetry 97 97 Oxygen Delivery Method Room Air Room Air 04/09/25 20:00 04/09/25 20:30 04/09/25 20:30 Temperature Pulse Rate 75 Respiratory Rate 19 Blood Pressure 138/81 135/72 Pulse Oximetry 99 Oxygen Delivery Method Room Air 04/09/25 21:00 04/09/25 21:00 04/09/25 21:30 Temperature Pulse Rate 75 72 Respiratory Rate 20 61 H Blood Pressure 148/72 H Pulse Oximetry 96 98 Oxygen Delivery Method Room Air Room Air 04/09/25 21:30 04/09/25 22:00 04/09/25 22:00 Temperature Pulse Rate 69 Respiratory Rate 17 Blood Pressure 142/67 H 157/75 H Pulse Oximetry 98 Oxygen Delivery Method Room Air 04/09/25 22:30 04/09/25 22:30 Temperature Pulse Rate 75 Respiratory Rate 14 Blood Pressure 168/81 H Pulse Oximetry 97 Oxygen Delivery Method Room Air MDM - Abdominal Pain Lab Data 04/09/25 15:38 04/09/25 15:38 Labs: Lab Results 04/09/25 04/09/25 Range/Units 15:38 16:53 WBC 10.0 (4.5-11.0) X10^3/uL RBC 4.29 (4.0-5.2) X10^6/uL Hgb 13.0 (12.0-16.0) g/dL Hct 38.6 (36-46) % MCV 90.0 (80-100) fL MCH 30.3 (26-34) PG MCHC 33.6 (30-36) % RDW 13.7 (11.6-14.8) % Plt Count 262 (150-400) X10^3/uL Neut % (Auto) 82.9 H (50-75) % Lymph % (Auto) 9.8 L (25-40) % [place] % (Auto) 6.4 (3-14) % Eos % (Auto) 0.1 L (2-4) % Baso % (Auto) 0.8 (0-2) % Neut # (Auto) 8300 H (1559-2582) /uL Lymph # (Auto) 1000 L (8607-0265) /uL [place] # (Auto) 600 (0-900) /uL Eos # (Auto) 0 (0-450) /uL Baso # (Auto) 100 (0-100) /uL Sodium 137 (137-145) mmol/L Potassium 3.9 (3.4-5.1) mmol/L Chloride 105 (98-107) mmol/L Carbon Dioxide 26 (22-32) mmol/L BUN 7 (7-17) mg/dL Creatinine 0.62 (0.52-1.04) mg/dL Estimated GFR > 60 (>60) mL/min BUN/Creatinine Ratio 11.3 (6-22) Glucose 138 H (70-99) mg/dL Calcium 9.5 (8.4-10.2) mg/dL Total Bilirubin 2.6 H (0.2-1.3) mg/dL AST 1345 H (14-36) IU/L ALT 648 H (<35) IU/L Alkaline Phosphatase 300 H (38-126) U/L Total Protein 7.5 (6.3-8.2) g/dL Albumin 4.1 (3.5-5.0) g/dL Globulin 3.4 (1.7-4.1) g/dL Albumin/Globulin Ratio 1.2 (1.0-2.8) Lipase 53 (23-300) U/L Ur Bilirubin Confirm Positive H (Negative) Urine RBC 0-1/hpf D (0-5/HPF) Urine WBC 0-1/hpf (0-5/HPF) Ur Squamous Epith Cells 1-5 /hpf (0-5/HPF) Urine Bacteria Few (2-10) H (None) Urine Mucus 1+ H (Negative) Ur Culture Indicated? Cult not indicated Vol Urine Centrifuged 10ml (spun) Point of care testing: Urine Dip Bedside Urine Glucose Negative Bedside Urine Bilirubin + 1 Bedside Urine Ketone +++ 80 Urine Specific [place] 1.020 Bedside Urine Occult Blood - Negative Bedside Urine pH 6.5 Bedside Urine Protein + 30 Bedside Urine Urobilinogen 1+ 2mg Bedside Urine Nitrite - Negative Bedside Urine Leukocytes - Negative Esterase Imaging Data CT scan - abdomen/pelvis: Radiologist's Impression: IMPRESSION: Intrahepatic biliary duct dilation status post cholecystectomy. Diffuse colonic and rectal wall thickening which may represent colitis and proctitis. Diffuse gastric wall thickening which may represent gastritis. Nonobstructing nephrolithiasis bilaterally. Numerous cysts in the kidneys and liver. MDM Narrative Medical decision making narrative: Patient's lab work reveals significantly elevated liver transaminases, total bili of 2.6 and alk-phos of 300. Otherwise unremarkable including no elevation of the white count. Her physical exam reveals a rather benign soft abdomen with minimal tenderness. 21:20 I discussed the patient's case and lab values with General surgery, Dr. Alvarenga who recommends CT scan 1st over ultrasound to assess for any abnormalities explaining her abnormal liver transaminases and total bilirubin. Patient's CT scan reveals intrahepatic biliary duct dilatation status post cholecystectomy and other findings of possible colitis although she has no diarrhea. I discussed the CT findings with General surgery, Dr. Alvarenga who feels that based on her other labs and exam she can follow up outpatient but does need outpatient ERCP to assess the common bile duct. Patient is discharged home with instructions to follow up with her providers, both primary care and Gastroenterology to discuss the lab findings and the CT findings and arrange for possible ERCP at a facility that can do that given her gastric bypass surgery for bariatric purposes. Patient has been informed of all these findings and she will contact primary Care, Gastroenterology but also she has a general surgeon who performed her cholecystectomy who can be involved with the decision making. Discharge Plan Departure Patient Disposition: Home Clinical Impression: Acute upper abdominal pain, Elevated liver enzymes Instructions: DI for Abdominal Pain-Adult Activity Restrictions/Additional Instructions: Assessment: Upper abdominal pain/discomfort along with elevated liver transaminases and bilirubin. CT scan reveals intrahepatic duct dilatation. Plan: On the recommendation of the on-call general surgeon, follow up closely with primary Care, Gastroenterology and possibly your surgeon who performed the cholecystectomy. Recommendation is to have ERCP by someone who can perform that given your previous gastric surgery/bypass. Make sure your providers see the abnormalities of liver function as well as the CT results. Return to the ER if worse Prescriptions: No Action omeprazole 40 mg capsule,delayed release(DR/EC) 40 mg PO DAILY cyclobenzaprine 10 mg tablet 10 mg PO Q8H PRN (Reason: muscle spasm) Qty: 10 0RF Referrals: Martha Marsh MD [Primary Care Provider, Internal Medicine] Stand Alone Forms: Patient Portal/API
--- NOTE | 2025-04-09 22:23 | DI.CT.S_ITS ---
PROCEDURE: CT ABDOMEN PELVIS W CON INDICATIONS: Upper abdominal pain with abnormal LFTs, total bili and alk- TECHNIQUE: After the administration of intravenous contrast, axial sections acquired from the lung bases to the pubic symphysis. Coronal and sagittal reformats were performed. For radiation dose reduction, the following was used: automated exposure control, adjustment of mA and/or kV according to patient size. COMPARISON: [facility], CT, CT KIDNEY URETER BLADDER (KUB), 08/06/2023, 10:15. FINDINGS: Image quality: Diagnostic. Lower Chest: No significant findings. ABDOMEN: Liver: Multiple hepatic cysts, increased in size from prior examination. Gallbladder: Cholecystectomy. Intrahepatic biliary duct dilation. Biliary ducts: No biliary dilation. Pancreas: No ductal dilation. Spleen: Size is within normal limits. Adrenal Glands: No adrenal nodules. Kidneys and Ureters: Multiple renal cysts bilaterally. Multiple renal calculi bilaterally. No hydronephrosis. Stomach and Bowel: S/p distal gastric resection. Diffuse gastric wall thickening. Diffuse colonic wall thickening. Normal appendix. Diverticulosis. No evidence of bowel obstruction. Peritoneum: No abnormal intraperitoneal fluid. No free air. Ventral Wall: No significant ventral hernia. Abdominal Nodes: No retroperitoneal or mesenteric adenopathy by size criteria. Vessels: Aorta and inferior vena cava are normal in size. PELVIS: Pelvic Organs: Uterus is enlarged similar to prior. Bladder: No bladder wall thickening, accounting for underdistention. Pelvic Nodes: No enlarged lymph nodes. Miscellaneous: No inguinal hernias are seen. Bones: No aggressive osseous abnormality. Degenerative changes of the spine. IMPRESSION: Intrahepatic biliary duct dilation status post cholecystectomy. Diffuse colonic and rectal wall thickening which may represent colitis and proctitis. Diffuse gastric wall thickening which may represent gastritis. Nonobstructing nephrolithiasis bilaterally. Numerous cysts in the kidneys and liver. Dictated by: Demar Crawford M.D. on 04/09/2025 at 22:58 Approved by: Demar Crawford M.D. on 04/09/2025 at 23:05
[2025-04-09] MEDS: ONDANSETRON 4 MG/2 ML INJ IV (22:30)
[2025-04-09] MEDS: MORPHINE 4 MG/ML INJ IV (22:30)
--- NOTE | 2025-04-09 22:34 | PC.NURSE ---
Pt to imaging via ED stretcher with infectious waste technician
== END 2025-04-09 23:55 | disposition home or self-care (01) ==
PROVIDERS: Emergency Provider Emergency Medicine; PCP Hospitalist
DX: R10.10 Upper abdominal pain, unspecified (principal); R74.8 Abnormal levels of other serum enzymes; Z98.84 Bariatric surgery status; K76.0 Fatty (change of) liver, not elsewhere classified; R11.2 Nausea with vomiting, unspecified
CPT/HCPCS: 36415; 74177; 80053; 81003; 81015; 83690; 85025; 93005; 93010; 96374; 96375; 99284; J2272; J2405; Q9967